=== PATIENT | male | born 1940 | race Caucasian/White ===

== ENCOUNTER → 2019-05-17 | Outpatient (CLI) | payer MEDICARE, BC ==
--- NOTE | 2019-05-17 08:08 | US ---
EXAMINATION TYPE: US abdomen comp/pelvis limited DATE OF EXAM: 05/17/2019 COMPARISON: US 2013 CLINICAL HISTORY: M79.2 NEURALGIA AND NEURITIS, R10.84 ABD PAIN. Intermittent abdomen pain x couple m onths EXAM MEASUREMENTS: Liver Length: 15.1 cm Gallbladder Wall: 0.2 cm CBD: 0.3 cm Spleen: 10.8 cm Right Kidney: 10.4 x 5.6 x 5.5 cm Left Kidney: 10.4 x 4.9 x 5.8 cm Post Void Residual: 47.0 mL Difficult and limited study due to patient body habitus and overlying bowel gas Pancreas: obscured Liver: mildly heterogeneous, scanned intercostally Gallbladder: 1.2cm echogenic shadowing stone seen on previous ultrasound CBD: visualized portions wnl Spleen: wnl Right Kidney: visualized portions wnl Left Kidney: wnl Upper IVC: wnl Abd Aorta: visualized portions wnl Bladder: mobile debris, wall measures in upper limits of normal Bilateral Jets Seen yes Normal Post Void Residual (normal less than 50ml) yes IMPRESSION: 1. Probable fatty liver. 2. Cholelithiasis. 3. Debris within the urinary bladder lumen.
--- NOTE | 2019-05-17 08:45 | XR ---
EXAMINATION TYPE: XR lumbosacral spine min 4V DATE OF EXAM: 05/17/2019 CLINICAL HISTORY: pain COMPARISON: NONE TECHNIQUE: Frontal, lateral, and oblique images of the lumbar spine are obtained. FINDINGS: There are 5 lumbar type vertebral bodies identified. The lumbar spine shows satisfactory alignment without evidence of acute fracture or dislocation. Vertebral body heights are within normal limits. Moderate to severe multilevel degenerative disc space narrowing greatest at L3-4 through L5- S1. Severe facet joint arthropathy with bilateral foraminal encroachment. The overlying soft tissue appears unremarkable. IMPRESSION: No acute fracture or dislocation is seen in the lumbar spine.ICD 10 NO FRACTURE, INITIAL EVALUATION
--- NOTE | 2019-05-17 08:46 | XR ---
EXAMINATION TYPE: XR thoracic spine 2V DATE OF EXAM: 05/17/2019 CLINICAL HISTORY: pain TECHNIQUE: Frontal, lateral, and swimmer's view of thoracic spine are obtained. COMPARISON: None. FINDINGS: Thoracic spine show satisfactory alignment without evidence of acute fracture or dislocatio n. Vertebral body heights are preserved. Moderate multilevel degenerative disc space narrowing and s pondylosis. Visualized ribs are unremarkable. IMPRESSION: No acute fracture or dislocation is seen in the thoracic spine. ICD 10 NO FRACTURE, INIT IAL EVALUATION
== END | disposition home or self-care (01) ==
LOC: RADUSWWP 06:58
PROVIDERS: ATTEND Family Medicine
DX: K80.20 Calculus of gallbladder without cholecystitis without obstruction (principal); M79.2 Neuralgia and neuritis, unspecified; R93.41 Abnormal radiologic findings on diagnostic imaging of renal pelvis, ureter, or bladder
CPT/HCPCS: 72070; 72110; 76700; 76857

== ENCOUNTER 2020-08-02 20:36 | Inpatient (IN) | payer MEDICARE, BC ==
[~2020-08-02 20:36] MED LIST: DEXTROSE 5% IN WATER 100 ML with AMIODARONE 150 MG IV ONE; IV FLUID CONTINUATION 1,000 ML IV ONE; NOREPINEPHRINE 4 MG in SODIUM CHLORIDE 0.9% 250 ML IV ONE; SODIUM CHLORIDE 0.9% 1,000 ML IV ONE
[2020-08-02] MEDS ORDERED: HEPARIN SODIUM,PORCINE 5,000 UNIT/ML 1 ML VIAL IV STA (20:44)
[2020-08-02] MEDS ORDERED: ATORVASTATIN 80 MG TAB PO STA (20:45)
--- NOTE | 2020-08-02 20:46 | ED ---
Chest Pain HPI - General Stated Complaint: Chest Pain Time Seen by Provider: 08/02/20 20:36 - History of Present Illness Initial Comments: 80-year-old male past history of coronary artery disease, hypertension who presents emergency room with reported chest pain. States that he was attempting to get a tractor out of a barn when he began having shortness of breath and chest pain. Pain is located near left-sided with radiation into his jaw. States has been constant since onset. Patient does have history of previous coronary disease with 2 stents in his heart. Last cath was in 2002. Patient sees [address] Turner. He denies any nausea, vomiting or diaphoresis. No fevers or chills. Denies cough. EMS was called and 12-lead EKG was performed which demonstrated inferior wall STEMI. Patient had taken 324 mg ASA at home. 100 mics of fentanyl was given en route. No other alleviating, precipitating or modifying factors - Related Data Home Medications Medication Instructions Recorded Confirmed Aspirin 325 mg PO DAILY PRN 08/02/20 08/02/20 Aspirin 364 mg PO ONCE PRN 08/02/20 08/02/20 Naproxen Sodium [Aleve] 220 mg PO DAILY PRN 08/02/20 08/02/20 Allergies Allergy/AdvReac Type Severity Reaction Status Date / Time No Known Allergies Allergy Verified 08/02/20 20:56 Review of Systems ROS Statement: Those systems with pertinent positive or pertinent negative responses have been documented in the HPI. ROS Other: All systems not noted in ROS Statement are negative. EKG Findings - EKG Comments: EKG Findings:: EKG demonstrates sinus rhythm with ventricular rate of 90. IL interval 210. QRS 84. QTC 442. ST segment elevation 2, 3, aVF, V4 through V6. Reciprocal changes in aVL, V2V3. Past Medical History Past Medical History: Coronary Artery Disease (CAD), Hypertension History of Any Multi-Drug Resistant Organisms: None Reported Past Surgical History: Heart Catheterization With Stent Past Psychological History: No Psychological Hx Reported Past Alcohol Use History: Rare Past Drug Use History: None Reported General Exam General appearance: alert, anxious, other (in pain) Head exam: Present: atraumatic, normocephalic, normal inspection Eye exam: Present: normal appearance, PERRL, EOMI. Absent: scleral icterus, conjunctival injection, periorbital swelling ENT exam: Present: normal exam, mucous membranes moist Neck exam: Present: normal inspection. Absent: tenderness, meningismus, lymphadenopathy Respiratory exam: Present: normal lung sounds bilaterally. Absent: respiratory distress, wheezes, rales, rhonchi, stridor Cardiovascular Exam: Present: regular rate, normal rhythm, normal heart sounds. Absent: systolic murmur, diastolic murmur, rubs, gallop, clicks GI/Abdominal exam: Present: soft, normal bowel sounds. Absent: distended, tenderness, guarding, rebound, rigid Extremities exam: Present: normal inspection, full ROM, normal capillary refill. Absent: tenderness, pedal edema, joint swelling, calf tenderness Back exam: Present: normal inspection Neurological exam: Present: alert, oriented X3, CN II-XII intact Psychiatric exam: Present: normal affect, normal mood Skin exam: Present: warm, dry, intact, normal color. Absent: rash Course Vital Signs 08/02/20 20:46 Temperature 97.5 F L Pulse Rate 88 Respiratory 16 Rate Blood Pressure 136/101 O2 Sat by Pulse 100 Oximetry Chest Pain MDM - MDM Upon arrival patient was promptly placed in a trauma 2. A thorough history and physical exam was performed. Dr. Turner had been notified prior to hospital arrival with prehospital EKG that the patient appeared to be a STEMI. Upon hospital arrival a 12-lead EKG was performed which continued to demonstrate ST elevation inferior leads. IV had been established. Patient was given 4000 units of heparin and 80 mg of atorvastatin. Portable chest x-ray is performed. I did speak with Dr. Turner at 2038 and requests that the cathodic protection technician to be called in. Patient remained in stable condition awaiting transfer to the [facility] [employer] at this time Disposition Clinical Impression: Chest pain, ST elevation myocardial infarction (STEMI) Disposition: ADMITTED IP TO THIS HOSP Condition: Serious Is patient prescribed a controlled substance at d/c from ED?: No Decision to Admit Reason: Admit from EC Decision Date: 08/02/20 Decision Time: 20:54
[2020-08-02 20:51] LABS: Basophils # (A) 0.1 k/uL (0-0.2); Basophils % (A) 1 %; Eosinophils # (A) 0.3 k/uL (0-0.7); Eosinophils % (A) 4 %; HCT 50.3 % (39.0-53.0); HGB 16.7 gm/dL (13.0-17.5); Lymphocytes # (A) 1.6 k/uL (1.0-4.8); Lymphocytes % (A) 20 %; MCH 30.9 pg (25.0-35.0); MCHC 33.1 g/dL (31.0-37.0); MCV 93.2 fL (80.0-100.0); Mean Platelet Volume 8.9; Monocytes # (A) 0.4 k/uL (0-1.0); Monocytes % (A) 5 %; Neutrophils # (A) 5.4 k/uL (1.3-7.7); Neutrophils % (A) 68 %; Platelet Count 149 k/uL (150-450); RDW 13.7 % (11.5-15.5)
[2020-08-02] MEDS ORDERED: NALOXONE 0.4 MG/ML 1 ML VIAL IV PRN (20:54)
[2020-08-02 20:59] LABS: Glucose,Whole Blood 176 mg/dL (75-99)
--- NOTE | 2020-08-02 21:15 | XR ---
EXAMINATION TYPE: XR chest 1V portable DATE OF EXAM: 08/02/2020 COMPARISON: 06/20/2015 HISTORY: Chest pain TECHNIQUE: FINDINGS: There is no heart failure nor confluent pneumonic infiltrate. Costophrenic angles are clear . There are no hilar masses. Heart size is normal. IMPRESSION: No active cardiopulmonary disease. No change.
[2020-08-02] MEDS ORDERED: LIDOCAINE 1% INJ 10MG/ML (20 ML MDV) ONE ×2 (21:20→22:29)
[2020-08-02] MEDS ORDERED: TICAGRELOR 90 MG TAB PO ONE (21:25)
[2020-08-02] MEDS ORDERED: HEPARIN SODIUM 1,000 UN/ML (10ML VL) IV ONE (21:25)
[2020-08-02] MEDS ORDERED: LIDOCAINE 1% INJ 10MG/ML (20 ML MDV) SQ ONE (21:25)
[2020-08-02] MEDS ORDERED: TICAGRELOR 90 MG TAB ONE (21:28)
[2020-08-02 21:29] LABS: INR 1.3 (<1.2); Partial Thromboplastin Time 88.4 sec (22.0-30.0); Prothrombin Time 13.2 sec (9.0-12.0)
[2020-08-02 21:51] LABS: Albumin 4.8 g/dL (3.5-5.0); Calcium 9.5 mg/dL (8.4-10.2); Magnesium 2.1 mg/dL (1.6-2.3); Total Bilirubin 0.8 mg/dL (0.2-1.3); Total Protein 8.1 g/dL (6.3-8.2)
[2020-08-02] MEDS ORDERED: DEXTROSE 5% IN WATER 100 ML with AMIODARONE 150 MG IV ONE (21:58)
[2020-08-02] MEDS ORDERED: AMIODARONE 360 MG in DEXTROSE 5% IN WATER 200 ML IV ONE ×2 (21:58)
[2020-08-02 22:05] LABS: Potassium 4.5 mmol/L (3.5-5.1)
[2020-08-02] MEDS ORDERED: ATROPINE SULFATE 0.1 MG/ML 10ML SYRINGE IV ONE (22:11)
[2020-08-02] MEDS ORDERED: fentaNYL (PF) 50 MCG/ML 2 ML AMP ONE (22:23)
[2020-08-02] MEDS ORDERED: fentaNYL (PF) 50 MCG/ML 2 ML AMP IVP ONE (22:25)
[2020-08-02] MEDS ORDERED: IOPAMIDOL-370 100ML BTL INJ ONE (22:38)
[2020-08-02] MEDS ORDERED: IOPAMIDOL-370 125ML BTL INJ ONE (22:44)
[2020-08-02] MEDS ORDERED: NITROGLYCERIN SL TABS 0.4 MG TAB SUBLINGUAL PRN (23:01)
[2020-08-02] MEDS ORDERED: ZOLPIDEM 5 MG TAB PO PRN (23:01)
[2020-08-02] MEDS ORDERED: RX INFO: IV CONTRAST WAS GIVEN 1 EACH MISC MISCELLANE PRN (23:01)
[2020-08-02] MEDS ORDERED: ATROPINE SULFATE 0.1 MG/ML 10ML SYRINGE IV PRN (23:01)
[2020-08-02] MEDS ORDERED: MAG HYDROX/AL HYDROX/SIMETH 30 ML CUP PO PRN (23:01)
[2020-08-02 23:06] LABS: Glucose,Whole Blood 202 mg/dL (75-99)
[2020-08-02] MEDS ORDERED: SODIUM CHLORIDE 0.9% 1,000 ML IV SCH (23:15)
[2020-08-02] MEDS: SPIRONOLACTONE 25 MG TAB PO SCH (23:49)
[2020-08-03 03:24] LABS: Basophils % (A) 0 %; Eosinophils # (A) 0.1 k/uL (0-0.7); Eosinophils % (A) 1 %; HCT 45.5 % (39.0-53.0); Lymphocytes # (A) 0.4 k/uL (1.0-4.8); Lymphocytes % (A) 5 %; MCH 31.4 pg (25.0-35.0); MCHC 33.1 g/dL (31.0-37.0); MCV 94.9 fL (80.0-100.0); Mean Platelet Volume 7.7; Monocytes # (A) 0.3 k/uL (0-1.0); Monocytes % (A) 3 %; Neutrophils # (A) 8.2 k/uL (1.3-7.7); Neutrophils % (A) 90 %; Platelet Count 103 k/uL (150-450); RBC 4.79 m/uL (4.30-5.90); RDW 13.4 % (11.5-15.5); WBC 9.1 k/uL (3.8-10.6)
[2020-08-03] MEDS ORDERED: AMIODARONE 450 MG in DEXTROSE 5% IN WATER 250 ML IV SCH ×2 (03:58)
[2020-08-03 04:00] LABS: Cholesterol 168 mg/dL (<200); HDL Cholesterol 55 mg/dL (40-60); LDL Cholesterol,Calculated 98 mg/dL (0-99); Triglycerides 77 mg/dL (<150)
[2020-08-03 04:21] LABS: African American GFR (CKD) >90 (>60 ml/min/1.73 sqM); Anion Gap 5 mmol/L; Blood Urea Nitrogen 30 mg/dL (9-20); Calcium 8.5 mg/dL (8.4-10.2); Carbon Dioxide 22 mmol/L (22-30); Chloride 106 mmol/L (98-107); Glucose 227 mg/dL (74-99); Non-African American GFR(CKD) 79 (>60 ml/min/1.73 sqM); Potassium 4.8 mmol/L (3.5-5.1); Sodium 133 mmol/L (137-145)
[2020-08-03] MEDS: FAMOTIDINE 20 MG TAB PO SCH ×2 (05:48→09:11)
--- NOTE | 2020-08-03 05:53 | CONS ---
CONSULTATION ATTENDING PHYSICIAN: Dr. Ellis. HISTORY OF PRESENT ILLNESS: Mr. Barrios is an 80-year-old male with known history of coronary disease, history of chronic tobacco use, who has stopped all his medication and presented to the emergency room with an acute inferior myocardial infarction. According to him, this started when he was working on his tractor and persisted. In view of that he came into the emergency room. He continues to have discomfort in the emergency room. He has underwent stenting in 2002. Details of that procedure are not available to me at this time, but about a year after he stopped all his medication. He was recently noted to have elevated blood sugar, but according to him he has changed his is eating habits and he has lost weight and he has noted not taking any pills. He has no chronic dyspnea on exertion or chest discomfort. He denies any PND, orthopnea, or peripheral edema. No dizziness, palpitation or syncope. SOCIAL HISTORY: He drinks caffeine. Rare alcohol intake. REVIEW OF SYSTEMS: RESPIRATORY SYSTEM: He denies any recent cough or fever. No wheezing. No history of obstructive lung disease. GI SYSTEM: No recent GI bleeding. No peptic ulcer disease. SYSTEM: No dysuria or hematuria. NERVOUS SYSTEM: No stroke or seizure. PHYSICAL EXAMINATION: He is an 80-year-old male, alert, oriented, in mild discomfort. Heart rate running in the 90s, blood pressure in the 100S systolic. HEAD: Normocephalic, eyes sclerae anicteric. NECK: Good carotid upstroke, no bruit, no jugular venous distention. LUNGS: Clear to auscultation. HEART: Regular rate and rhythm S1, S2. No S3 with a systolic murmur at the base. No diastolic murmur. No rub. ABDOMEN: Soft and nontender. Positive bowel sounds. No organomegaly. EXTREMITIES: No edema. Intact distal pulses. LAB DATA: EKG was sinus mechanism with severe ST-segment elevation in leads 2, 3, AVF as well as V4 through V6 with ST depression in lead V1 and V2 as well as ST depression in AVR. IMPRESSION: 1. Acute myocardial infarction appears to be large inferolateral and posterior myocardial infarction in a patient with known history of coronary artery disease. 2. Prior history of hyperlipidemia. Patient on no medication. 3. Prior history of diabetes. 4. History of chronic tobacco use. RECOMMENDATION: I have recommended proceeding with coronary angiography to assess his status and guide his treatment. The rationale behind the procedure, its risks and the complications were discussed with the patient who is in full understanding and agreement. Thank you for this consult. We will follow with you. PAMELA / IJN: [id number] /
[2020-08-03] MEDS: FUROSEMIDE 20 MG TAB PO SCH ×2 (09:14→21:03)
[2020-08-03] MEDS: ASPIRIN 81 MG PO SCH (09:14)
[2020-08-03] MEDS: TICAGRELOR 90 MG TAB PO SCH ×2 (09:14→21:03)
[2020-08-03] MEDS: METOPROLOL TARTRATE 25 MG TAB PO SCH ×2 (09:15→21:03)
[2020-08-03] MEDS: SPIRONOLACTONE 25 MG TAB PO SCH (09:15)
[2020-08-03] MEDS: lisinopriL 10 MG TAB PO SCH (09:15)
--- NOTE | 2020-08-03 09:27 | CC ---
CARDIAC CATHETERIZATION REPORT PROCEDURE PERFORMED: Cardiac catheterization. HISTORY OF PRESENT ILLNESS: Mr. Barrios is an 80-year-old male with known history of coronary artery disease status post stenting of the LAD in 2002, who has stopped all his medication, presented with a large inferior wall myocardial infarction. Recommendation made regarding cardiac catheterization. The procedure, its risks, and complications were discussed with the patient who is in full understanding and agreement. PROCEDURE: On arrival to the cardiac catheterization, patient had a ventricle fibrillation requiring brief CPR and cardioversion with confucianist of sinus mechanism. Subsequently, achieving moderate conscious sedated state, using Xylocaine anesthesia and Seldinger technique, a 6-Guamanian sheath was introduced in the right femoral artery. Attempts to cannulate the right coronary artery using a 6-Guamanian FR4 guiding catheter was unsuccessful without good support. That guiding catheter was removed and a 6-Guamanian Amplatz left 0.75 was introduced. After cannulating the right coronary ostium, 0.014 balanced medium weight J-wire with the help of a super cross straight were used to cross the total occlusion and positioned distally. Subsequently a 2.5 x 12 mm Trek balloon was advanced and multiple inflations were done at maximum 10 atmospheres. Following that the balloon was removed and an export catheter was introduced without ability to our remove any significant thrombus. Subsequently, a 4.0 x 38 mm Xience Yoselyn stent was deployed and post dilated at 16 atmospheres. After removing the balloon another 4.0 x 15 mm Xience Yoselyn stent was deployed proximal to the first one and post dilated at 16 atmospheres. Following that, a 4.0 x 20 mm NC Emerge balloon was advanced and 2 inflations in the stented segment maximum 14 atmospheres was done. Following that, a 2.75 x 15 mm Xience Yoselyn stent was advanced and deployed at the bifurcation of the PLV. After the last inflation, after appropriate wait, the balloon and the guidewire were withdrawn back in the guiding catheter. Images were obtained and repeated. Those images reveal stable successful stenting. At that point a 6- Guamanian left Sami catheter was introduced and images of the left coronary system were performed. Following that, the 6-Guamanian tight pigtail catheter was introduced into the left ventricle and pressures were calculated. After obtaining the left ventricular end- diastolic pressure, the 6-Guamanian Amplatz left guiding catheter was reintroduced into the system and images of the right coronary artery performed. At the end procedure guiding the catheter was removed. The sheath was removed. Hemostasis was obtained with deployment of an Angio-Seal. There was no immediate complication. Patient was returned to his room in stable condition. Of note, the patient had another ventricular fibrillation during the procedure requiring cardioversion. He had an episode of hypotension requiring brief infusion of norepinephrine and he received 0.5 mg of atropine. At the end of the procedure, his blood pressure and heart rate were stable. His pain was better, but continued to have some ST elevation. He has received a total of 6000 units intravenous heparin and his ACT was followed, as well as oral loading dose of Brilinta. FINDINGS: LEFT MAIN: This is a large-sized vessel, bifurcating into left circumflex, left anterior descending artery. Left main coronary artery has a 10% to 20% plaque distally. LEFT ANTERIOR DESCENDING ARTERY: This vessel is large in caliber, reaching toward the apex and gives rise to 2 diagonal branchs. The first one is diffusely diseased with area of stenosis up to 60 to 70%. It is small to moderate in caliber. The proximal LAD has a 40% to 50% plaque at the takeoff of the second diagonal branch. There is a tubular lesion up to 90%. Beyond that, there is a stented segment that appears to be patent. LEFT CIRCUMFLEX: This is a nondominant vessel, small in caliber, giving rise to 2 obtuse marginal branchs that have diffuse intimal disease. RIGHT CORONARY ARTERY: This vessel is totally occluded proximally with no antegrade flow. LEFT VENTRICULAR END-DIASTOLIC PRESSURE: There was no gradient across the aortic valve. The ventricle end-diastolic pressure was 30-35 mmHg. ANGIOPLASTY: He underwent successful stenting of the right coronary artery with reduction of stenosis from 100% to 0% with good flow in the PLV and PDA at the end the procedure. RESULTS: 1. Acutely occluded right coronary artery. 2. Critical stenosis in the mid left anterior descending with moderate disease in the proximal left anterior descending. 3. Diffuse intimal disease in the left circumflex. 4. Elevated left ventricular end-diastolic pressure. RESULTS OF THE ANGIOPLASTY: Successful stenting of the mid right coronary artery and the right PLV with reduction of stenosis from 100% to 0%. RECOMMENDATION: Patient will be continued on aspirin, Brilinta, beta faizan, VERONICA inhibitor, statin. The importance of dual antiplatelet treatment and medical compliance were discussed with the patient who is in full understanding and agreement. The patient will be re- evaluated at a later time regarding revascularization of his LAD. DURATION OF THE SEDATION: 106 minutes. PAMELA / STEPHANIA: [id number] / MTDD
--- NOTE | 2020-08-03 10:04 | PN ---
PROGRESS NOTE Mr. Barrios is an 80-year-old male who presented with an acute large inferoposterior myocardial infarction, underwent stenting of a totally occluded LAD. His course was complicated by ventricular fibrillation requiring cardioversion and CPR. He was found to have significant obstructive disease in the LAD. He is doing well this morning. He has some soreness in the chest, but no further anginal symptoms. He had no further ventricular ectopic activity. He is in sinus mechanism. He has no nausea or vomiting. He continues to be on IV amiodarone. In addition to that he is on aspirin once a day, Brilinta 90 mg twice a day, Lipitor 80 mg daily, furosemide 20 mg twice a day, Zestril 2.5 mg daily, metoprolol tartrate 25 mg twice a day and spironolactone 25 mg daily. PHYSICAL EXAMINATION: Blood pressure running in the high 80s, low 100s with a heart rate in the 60s. LUNGS: Clear. HEART is regular rate and rhythm. S1, S2. No S3. No rub. ABDOMEN: Soft, obese, nontender. EXTREMITIES: No edema. Right groin hematoma. EKG revealed inferior wall myocardial infarction. His ST-segment elevation has improved. LAB DATA: Lab data revealed troponin of 87, BUN and creatinine 30 and 0.9, hemoglobin of 15. IMPRESSION: 1. Status post acute inferoposterior myocardial infarction with stenting of the right coronary artery. 2. Prior history of coronary artery disease with significant obstructive disease in the mid LAD. 3. Ventricular fibrillation, resolved, occurring at the time of the acute event. 4. History of smoking. RECOMMENDATION: I will stop his IV amiodarone, increase his level of activity. We will obtain echocardiogram with Doppler tomorrow and depending on his progress, further recommendations will be made regarding the timing to undergo revascularization of the LAD. MMODL / IJN: [id number] /
[2020-08-03] MEDS ORDERED: ACETAMINOPHEN TAB 325 MG TAB PO PRN (11:59)
--- NOTE | 2020-08-03 12:02 | P.HPIM ---
History of Present Illness H&P Date: 08/03/20 This is an 80-year-old male patient of Dr. Ellis who presented to the ER with complaints of chest pain. Patient reports associated shortness of breath and described pain is constant. Patient reports that he has previous coronary artery disease with previous history of 2 stents in the heart in 2002. Upon arrival patient was found to have an inferior wall STEMI and was taken to the hernia catheterization lab. Patient received 3 stents. Patient does have a past medical history of CAD hypertension and GERD. According to cardiac catheterization procedure no. Patient did require CPR after going into V. fib and cardioversion. Patient was briefly on amiodarone but since has been DC'd. Patient is in sinus rhythm resting comfortably in the intensive care unit. Patient denies any chest pain. Patient does report some tenderness around rib cage secondary to CPR. Patient denies shortness of breath. Patient is complaining of constipation we'll add Colace. Will add Tylenol for muscle dis comfort at this time patient denies any chest pain or shortness breath. Patient denies nausea vomiting or diarrhea. Patient denies any urinary burning or frequency Review of Systems Please refer to HPI otherwise unremarkable Past Medical History Past Medical History: Coronary Artery Disease (CAD), Hypertension History of Any Multi-Drug Resistant Organisms: None Reported Past Surgical History: Heart Catheterization With Stent Date of Last Stent Placement:: 2002 Past Psychological History: No Psychological Hx Reported Smoking Status: Never smoker Past Alcohol Use History: Rare Past Drug Use History: None Reported Medications and Allergies Home Medications Medication Instructions Recorded Confirmed Type Aspirin 325 mg PO DAILY PRN 08/02/20 08/02/20 History Aspirin 364 mg PO ONCE PRN 08/02/20 08/02/20 History Naproxen Sodium [Aleve] 220 mg PO DAILY PRN 08/02/20 08/02/20 History Allergies Allergy/AdvReac Type Severity Reaction Status Date / Time No Known Allergies Allergy Verified 08/02/20 20:56 Physical Exam Vitals: Vital Signs Temp Pulse Resp BP Pulse Ox 08/03/20 11:00 65 9 L 85/65 95 08/03/20 10:25 97.7 F 08/03/20 10:00 61 10 L 90/64 96 08/03/20 09:00 60 18 89/64 95 08/03/20 08:00 97.8 F 67 19 120/107 96 08/03/20 07:00 68 6 L 88/54 94 L 08/03/20 06:00 67 12 89/53 96 08/03/20 05:00 66 14 99/73 94 L 08/03/20 04:30 68 18 104/67 95 08/03/20 04:00 96.8 F L 68 14 83/56 94 L 08/03/20 03:30 65 15 85/59 94 L 08/03/20 03:00 66 12 89/63 96 08/03/20 02:30 69 11 L 85/58 95 08/03/20 02:00 67 12 89/60 96 08/03/20 01:30 71 10 L 79/59 96 08/03/20 01:00 80 9 L 88/60 96 08/03/20 00:34 80 9 L 88/60 95 08/03/20 00:30 79 12 97/59 08/03/20 00:00 80 14 78/52 97 08/02/20 23:30 96.4 F L 82 6 L 92/62 96 08/02/20 23:26 96 08/02/20 23:03 86 15 08/02/20 20:46 97.5 F L 88 16 136/101 100 Intake and Output 08/02/20 08/03/20 08/03/20 22:59 06:59 14:59 Intake Total 1283.0 391.6 Balance 1283.0 391.6 Intake: IV 783.0 91.6 Amiodarone 360 mg In 133.2 Dextrose 5% in Water 200 ml @ 1 MG/MIN 33.333 mls/ hr IV .Q6H ONE Rx#: [id number] Amiodarone 450 mg In 49.8 16.6 Dextrose 5% in Water 250 ml @ 0.5 MG/MIN 16.667 mls/hr IV .Q15H MARGUERITE Rx#: [id number] Sodium Chloride 0.9% 1, 600 75 000 ml @ 75 mls/hr IV . [id number] MARGUERITE Rx#:[id number] Oral 500 300 Other: Voiding Method Urinal # Voids 1 Weight 91.626 kg 96.4 kg Head normocephalic Neck supple Lungs clear to auscultation bilaterally no wheezing or crackles Heart regular rate and rhythm S1-S2, no rub or gallop Abdomen is soft nontender nondistended positive bowel sounds no hepatosplenomegaly Extremities no edema. Groin site clean dry and intact and soft Neuro alert and orientated to 3 Results CBC & Chem 7: 08/03/20 03:01 08/03/20 03:01 Labs: Abnormal Lab Results - Last 24 Hours (Table) 08/02/20 08/02/20 08/02/20 Range/Units 20:40 20:58 21:05 Plt Count 149 L (150-450) k/uL Neutrophils # (1.3-7.7) k/uL Lymphocytes # (1.0-4.8) k/uL PT (9.0-12.0) sec INR (<1.2) APTT (22.0-30.0) sec Sodium (137-145) mmol/L Carbon Dioxide 21 L (22-30) mmol/L BUN 29 H (9-20) mg/dL Glucose 174 H (74-99) mg/dL POC Glucose (mg/dL) 176 H (75-99) mg/dL Troponin I (0.000-0.034) ng/mL 08/02/20 08/02/20 08/02/20 Range/Units 21:05 21:05 23:04 Plt Count (150-450) k/uL Neutrophils # (1.3-7.7) k/uL Lymphocytes # (1.0-4.8) k/uL PT 13.2 H (9.0-12.0) sec INR 1.3 H (<1.2) APTT 88.4 H (22.0-30.0) sec Sodium (137-145) mmol/L Carbon Dioxide (22-30) mmol/L BUN (9-20) mg/dL Glucose (74-99) mg/dL POC Glucose (mg/dL) 202 H (75-99) mg/dL Troponin I 0.050 H* (0.000-0.034) ng/mL 08/02/20 08/03/20 08/03/20 Range/Units 23:28 03:01 03:01 Plt Count 103 L (150-450) k/uL Neutrophils # 8.2 H (1.3-7.7) k/uL Lymphocytes # 0.4 L (1.0-4.8) k/uL PT (9.0-12.0) sec INR (<1.2) APTT (22.0-30.0) sec Sodium 133 L (137-145) mmol/L Carbon Dioxide (22-30) mmol/L BUN 30 H (9-20) mg/dL Glucose 227 H (74-99) mg/dL POC Glucose (mg/dL) (75-99) mg/dL Troponin I 26.300 H* (0.000-0.034) ng/mL 08/03/20 Range/Units 03:01 Plt Count (150-450) k/uL Neutrophils # (1.3-7.7) k/uL Lymphocytes # (1.0-4.8) k/uL PT (9.0-12.0) sec INR (<1.2) APTT (22.0-30.0) sec Sodium (137-145) mmol/L Carbon Dioxide (22-30) mmol/L BUN (9-20) mg/dL Glucose (74-99) mg/dL POC Glucose (mg/dL) (75-99) mg/dL Troponin I 87.700 H* (0.000-0.034) ng/mL Thrombosis Risk Factor Assmnt - Choose All That Apply Any of the Below Risk Factors Present?: Yes Each Factor Represents 1 point: Acute HI Other Risk Factors: Yes Each Risk Factor Represents 3 Points: Age 75 years or older Other congenital or acquired thrombophilia - If yes, enter type in comment: No Thrombosis Risk Factor Assessment Total Risk Factor Score: 4 Thrombosis Risk Factor Assessment Level: Moderate Risk Assessment and Plan Assessment: 1. Acute ST elevated HI. Status post 3 stents on 08/02/2020. Patient also required CPR during cardiac catheterization. Patient currently maintained on Brilinta 2. History of coronary artery disease with previous stents in 2002 3. History of essential hypertension 4. Constipation. Colace added 5. Chest wall discomfort secondary to CPR. Tylenol added Time with Patient: Greater than 30 (Greater than 60% of the total time spent in counseling and coordination of care. I performed an examination of the patient and discussed their management with the Nurse Practitioner. I have reviewed the Nurse Practitioner's notes and agree with the documented findings and plan of care)
[2020-08-03] MEDS: DOCUSATE 100 MG CAP PO SCH ×2 (12:27→21:03)
[2020-08-03] MEDS ORDERED: NAPROXEN 250 MG TAB PO PRN (12:42)
--- NOTE | 2020-08-03 12:50 | P.HPADDEND ---
H&P Addendum H&P Addendum Date: 08/03/20 Patient seen and examined in the ICU, he presented with chest pain and evidence of inferoposterior myocardial infarction he underwent cardiac catheterization with angioplasty and stent placement to totally occluded LAD. His course was complicated with ventricular fibrillation requiring cardioversion and CPR . Patient is admitted to intensive care unit postprocedure currently he is alert and oriented 3 in no apparent distress he denies any new episodes of chest pain. His physical exam reveals a temperature of 97.7 pulse 61 respiration 18 blood pressure 90/64 pulse ox 96% on 6 L nasal cannula HEENT head normocephalic and atraumatic Neck is supple no JVD no goiter no lymphadenopathy Chest exam reveals a few scattered rhonchi bilaterally no wheezing Cardiac exam reveals regular heart sounds S1 and S2 no gallops no murmurs nor rubs Abdomen is soft nontender no organomegaly with normal bowel sounds Extremity exam reveals no edema no cyanosis or clubbing Assessment and plan: 1. Acute ST elevation anterior myocardial infarction status post angioplasty and stent placement 2. Episode of ventricular fibrillation status post CPR and cardioversion Will follow closely Full H&P dictated by my nurse practitioner Sandra Calloway
[2020-08-03] MEDS: EZETIMIBE 10 MG TAB PO SCH (13:39)
[2020-08-03] MEDS ORDERED: SODIUM CHLORIDE 0.9% 500 ML 250 ML IV ONE (17:18)
[2020-08-03] MEDS ORDERED: ATORVASTATIN 80 MG TAB PO SCH (21:00)
[2020-08-04 04:40] LABS: Basophils % (A) 0 %; Eosinophils # (A) 0.1 k/uL (0-0.7); Eosinophils % (A) 2 %; HCT 42.9 % (39.0-53.0); HGB 14.2 gm/dL (13.0-17.5); Lymphocytes # (A) 0.8 k/uL (1.0-4.8); Lymphocytes % (A) 10 %; MCH 31.2 pg (25.0-35.0); MCV 94.5 fL (80.0-100.0); Mean Platelet Volume 8.5; Monocytes # (A) 0.4 k/uL (0-1.0); Monocytes % (A) 6 %; Neutrophils % (A) 81 %; RBC 4.53 m/uL (4.30-5.90); RDW 13.9 % (11.5-15.5); WBC 7.4 k/uL (3.8-10.6)
[2020-08-04 04:41] LABS: Platelet Count 90 k/uL (150-450)
[2020-08-04 04:44] LABS: Albumin 3.4 g/dL (3.5-5.0); Calcium 8.6 mg/dL (8.4-10.2); Potassium 4.6 mmol/L (3.5-5.1); Total Bilirubin 0.9 mg/dL (0.2-1.3); Total Protein 6.1 g/dL (6.3-8.2)
[2020-08-04] MEDS ORDERED: SODIUM CHLORIDE 0.9% 1,000 ML IV ONE (05:18)
[2020-08-04] MEDS: METOPROLOL TARTRATE 25 MG TAB PO SCH ×2 (08:49→20:16)
[2020-08-04] MEDS: ASPIRIN 81 MG PO SCH (08:49)
[2020-08-04] MEDS: FUROSEMIDE 20 MG TAB PO SCH ×2 (08:49→20:16)
[2020-08-04] MEDS: FAMOTIDINE 20 MG TAB PO SCH (08:49)
[2020-08-04] MEDS: TICAGRELOR 90 MG TAB PO SCH ×2 (08:49→20:16)
[2020-08-04] MEDS: DOCUSATE 100 MG CAP PO SCH ×2 (08:49→20:17)
[2020-08-04] MEDS: lisinopriL 10 MG TAB PO SCH (08:49)
[2020-08-04] MEDS: EZETIMIBE 10 MG TAB PO SCH (08:58)
[2020-08-04] MEDS ORDERED: ATORVASTATIN 20 MG TAB PO SCH (09:00)
[2020-08-04 10:02] VITALS: BMI 36.5
[2020-08-04] MEDS: SPIRONOLACTONE 25 MG TAB PO SCH (11:12)
--- NOTE | 2020-08-04 13:00 | ECHOF ---
Referral Reason:mi MEASUREMENTS -------- HEIGHT: 167.6 cm WEIGHT: 102.5 kg BP: 78/56 RVIDd: 3.8 cm (< 3.3) IVSd: 1.4 cm (0.6 - 1.1) LVIDd: 4.0 cm (3.9 - 5.3) LVPWd: 1.1 cm (0.6 - 1.1) IVSs: 1.5 cm LVIDs: 3.5 cm LVPWs: 1.7 cm LA Diam: 3.8 cm (2.7 - 3.8) Ao Diam: 2.6 cm (2.0 - 3.7) AV Cusp: 1.5 cm (1.5 - 2.6) MV EXCURSION: 13.261 mm (> 18.000) MV EF SLOPE: 95 mm/s (70 - 150) EPSS: 0.3 cm MV E Mendoza: 0.50 m/s MV DecT: 165 ms MV A Mendoza: 0.55 m/s MV E/A Ratio: 0.91 RAP: 5.00 mmHg RVSP: 14.05 mmHg FINDINGS -------- Sinus rhythm. This was a technically difficult study with suboptimal views. The left ventricular size is normal. There is moderate concentric left ventricular hypertrophy. O verall left ventricular systolic function is moderate-severely impaired with, an EF between 30 - 35 % . The right ventricle is mild to moderately enlarged. The right ventricular systolic function is mode rately impaired. The left atrial size is normal. The right atrium is mildly enlarged. 5.0mg of Lumason was utilized for enhancement of images Interatrial and interventricular septum intact. The aortic valve was not well visualized. There is no evidence of aortic regurgitation. There is no evidence of aortic stenosis. The mitral valve was not well visualized. Mild mitral regurgitation is present. The tricuspid valve was not well visualized. Mild tricuspid regurgitation present. There is no ev idence of pulmonary hypertension. The right ventricular systolic pressure, as measured by Doppler, is 14.05mmHg. The pulmonic valve was not well visualized. The aortic root size is normal. The inferior vena cava is mildly dilated. There is no pericardial effusion. CONCLUSIONS -------- 1. The left ventricular size is normal. 2. There is moderate concentric left ventricular hypertrophy. 3. Overall left ventricular systolic function is moderate-severely impaired with, an EF between 30 - 35 %. 4. The right ventricle is mild to moderately enlarged. 5. The right ventricular systolic function is moderately impaired. 6. The left atrial size is normal. 7. The right atrium is mildly enlarged. 8. Mild mitral regurgitation is present. 9. Mild tricuspid regurgitation present. 10. The inferior vena cava is mildly dilated. MEMORANDUM STATEMENT CLERK: Allison Long RDCS
--- NOTE | 2020-08-04 17:31 | P.PN ---
Subjective HISTORY OF PRESENTING ILLNESS This is a pleasant 80-year-old male past medical history significant for CAD with prior history of heart catheterization in 2002 who presented with chest pain and shortness breath on 08/02/20 night. Patient was found to have an inferior STEMI and underwent heart catheterization with PCI of the RCA and was also noted to have residual LAD disease. Echocardiogram was performed which showed ejection fraction 30-35%, mild mitral regurgitation. Patient did have V. fib arrest during heart catheterization. Patient has been borderline hypotensive. He denies any chest pain or pressure or shortness breath. Admits to some chest discomfort around where he had chest compressions. REVIEW OF SYSTEMS At the time of my exam: CONSTITUTIONAL: Denies fever or chills. CARDIOVASCULAR: Denies chest pain, shortness of breath, orthopnea, PND or palpitations. RESPIRATORY: Denies cough. GASTROINTESTINAL: Denies abdominal pain, diarrhea, constipation, nausea or vomiting. MUSCULOSKELETAL: Denies myalgias. NEUROLOGIC: Denies numbness, tingling or weakness. ENDOCRINE: Denies fatigue, weight change, polydipsia or polyurina. GENITOURINARY: Denies burning, hematuria or urgency with micturation. HEMATOLOGIC: Denies history of anemia or bleeding. PHYSICAL EXAMINATION Blood pressure 91/59 heart rate 68 afebrile and maintaining oxygen saturation on room air. CONSTITUTIONAL: No apparent distress. HEENT: Head is normocephalic. Pupils are equal, round. Sclerae anicteric. Mucous membranes of the mouth are moist. No JVD. No carotid bruit. CHEST EXAMINATION: Lungs are clear to auscultation. No chest wall tenderness is noted on palpation or with deep breathing. HEART EXAMINATION: Regular rate and rhythm. S1, S2 heard. No murmurs, gallops or rub. ABDOMEN: Soft, nontender. Positive bowel sounds. EXTREMITIES: 2+ peripheral pulses, no lower extremity edema and no calf tenderness. NEUROLOGIC EXAMINATION: Patient is awake, alert and oriented x3. ASSESSMENT 1. Inferior STEMI status post PCI to RCA 08/02/20 2. Ischemic cardiomyopathy ejection fraction 30-35%, currently appears euvolemic 3. Borderline hypotension, tolerating low-dose heart failure regimen with lisinopril 2.5 mg daily, Lopressor 25 mg twice a day 4. Status post cardioversion of V. fib arrest related to STEMI 5. Coronary artery disease with residual LAD disease 6. Hyperlipidemia PLAN Continue dual antiplatelets. Echo reveals ejection fraction 30-35%. Patient borderline hypotensive and continue to optimize heart failure regimen as able. Patient will likely need intervention of his LAD during this hospitalization, possibly Tuesday. Continue to monitor creatinine, urine output. Patient currently appears near euvolemic and we will continue with maintenance Lasix at this time. Objective - Vital Signs Vital signs: Vital Signs Temp 98.7 F 08/04/20 08:00 Pulse 68 08/04/20 15:00 Resp 20 08/04/20 15:00 BP 91/59 08/04/20 15:00 Pulse Ox 97 08/04/20 15:00 Intake & Output 08/03/20 08/04/20 08/04/20 18:59 06:59 18:59 Intake Total 1891.6 1349 480 Output Total 600 1000 0 Balance 1291.6 349 480 Weight 102.7 kg 102.7 kg Intake: IV 91.6 999 0 Amiodarone 450 mg In 16.6 Dextrose 5% in Water 250 ml @ 0.5 MG/MIN 16.667 mls/hr IV .Q15H MARGUERITE Rx#: [id number] Sodium Chloride 0.9% 1, 75 000 ml @ 75 mls/hr IV . [id number] MARGUERITE Rx#:[id number] Sodium Chloride 0.9% 1, 999 0 000 ml @ 999 mls/hr IV . Q1H1M ONE Rx#:[id number] Intake, IV Titration 250 Amount Sodium Chloride 0.9% 500 250 ml 250 ml @ 999 mls/hr IV .Q16M ONE Rx#:[id number] Oral 1550 350 480 Output: Urine 600 1000 0 Other: Voiding Method Toilet Toilet Toilet # Voids 1 1 1 # Bowel Movements 1 - Labs CBC & Chem 7: 08/04/20 03:10 08/04/20 03:10 Labs: Abnormal Lab Results - Last 24 Hours (Table) 08/04/20 08/04/20 Range/Units 03:10 03:10 Plt Count 90 L (150-450) k/uL Lymphocytes # 0.8 L (1.0-4.8) k/uL Sodium 133 L (137-145) mmol/L Carbon Dioxide 21 L (22-30) mmol/L BUN 42 H (9-20) mg/dL Glucose 142 H (74-99) mg/dL AST 269 H (17-59) U/L ALT 74 H (4-49) U/L Total Protein 6.1 L (6.3-8.2) g/dL Albumin 3.4 L (3.5-5.0) g/dL
--- NOTE | 2020-08-04 17:31 | P.PN ---
Subjective Progress Note Date: 08/04/20 This is an 80-year-old male patient of Dr. Ellis who presented to the ER with complaints of chest pain. Patient reports associated shortness of breath and described pain is constant. Patient reports that he has previous coronary artery disease with previous history of 2 stents in the heart in 2002. Upon arrival patient was found to have an inferior wall STEMI and was taken to the hernia catheterization lab. Patient received 3 stents. Patient does have a past medical history of CAD hypertension and GERD. According to cardiac catheterization procedure no. Patient did require CPR after going into V. fib and cardioversion. Patient was briefly on amiodarone but since has been DC'd. Patient is in sinus rhythm resting comfortably in the intensive care unit. Patient denies any chest pain. Patient does report some tenderness around rib cage secondary to CPR. Patient denies shortness of breath. Patient is complaining of constipation we'll add Colace. Will add Tylenol for muscle discomfort at this time patient denies any chest pain or shortness breath. Patient denies nausea vomiting or diarrhea. Patient denies any urinary burning or frequency On 08/04/2020, patient was seen and examined in the ICU he is alert and oriented 3 in no apparent distress patient denies any new episodes of chest pain there is no shortness of breath there is no fever or chills no headache or dizziness no chest pain no shortness of breath no cough during no abdominal pain no diarrhea no blood in the stools no burning with urination no frequency or urgency and no hematuria, patient is being evaluated by cardiology he had an echocardiogram today that revealed an ejection fraction of 30-35% Objective - Vital Signs Vital signs: Vital Signs Temp 98.7 F 08/04/20 08:00 Pulse 82 08/04/20 08:30 Resp 12 08/04/20 08:30 BP 105/67 08/04/20 08:30 Pulse Ox 95 08/04/20 08:30 Intake & Output 08/03/20 08/04/20 08/04/20 18:59 06:59 18:59 Intake Total 1891.6 1349 Output Total 600 1000 0 Balance 1291.6 349 0 Weight 102.7 kg Intake: IV 91.6 999 Amiodarone 450 mg In 16.6 Dextrose 5% in Water 250 ml @ 0.5 MG/MIN 16.667 mls/hr IV .Q15H MARGUERITE Rx#: [id number] Sodium Chloride 0.9% 1, 75 000 ml @ 75 mls/hr IV . [id number] MARGUERITE Rx#:[id number] Sodium Chloride 0.9% 1, 999 000 ml @ 999 mls/hr IV . Q1H1M ONE Rx#:[id number] Intake, IV Titration 250 Amount Sodium Chloride 0.9% 500 250 ml 250 ml @ 999 mls/hr IV .Q16M ONE Rx#:[id number] Oral 1550 350 Output: Urine 600 1000 0 Other: Voiding Method Toilet Toilet # Voids 1 1 # Bowel Movements 1 - Exam In general patient is alert and oriented 3 in no apparent distress HEENT head normocephalic and atraumatic Neck is supple no JVD no goiter no lymphadenopathy Chest exam reveals a few scattered rhonchi bilaterally no wheezing Cardiac exam reveals regular heart sounds S1 and S2 no gallops no murmurs nor rubs Abdomen is soft nontender no organomegaly with normal bowel sounds Extremity exam reveals no edema no cyanosis or clubbing Neuro exam reveals no gross focal deficit - Labs CBC & Chem 7: 08/04/20 03:10 08/04/20 03:10 Labs: Abnormal Lab Results - Last 24 Hours (Table) 08/02/20 08/04/20 08/04/20 Range/Units 23:28 03:10 03:10 Plt Count 90 L (150-450) k/uL Lymphocytes # 0.8 L (1.0-4.8) k/uL Sodium 133 L (137-145) mmol/L Carbon Dioxide 21 L (22-30) mmol/L BUN 42 H (9-20) mg/dL Glucose 142 H (74-99) mg/dL Hemoglobin A1c 6.3 H (4.0-6.0) % AST 269 H (17-59) U/L ALT 74 H (4-49) U/L Total Protein 6.1 L (6.3-8.2) g/dL Albumin 3.4 L (3.5-5.0) g/dL Assessment and Plan Plan: 1. Acute ST elevation anterior myocardial infarction status post angioplasty and stent placement 2. Episode of ventricular fibrillation status post CPR and cardioversion Will follow closely 3. Underlying history of hypertension 4. Underlying history of hyperlipidemia 5. Underlying history of peripheral vascular disease Medication and labs were reviewed Continue to follow up closely in ICU
[2020-08-05 04:40] LABS: Albumin 3.7 g/dL (3.5-5.0); Calcium 8.9 mg/dL (8.4-10.2); Potassium 4.5 mmol/L (3.5-5.1); Total Bilirubin 1.2 mg/dL (0.2-1.3); Total Protein 6.4 g/dL (6.3-8.2)
[2020-08-05 04:45] LABS: Basophils % (A) 0 %; Eosinophils # (A) 0.1 k/uL (0-0.7); Eosinophils % (A) 1 %; HCT 42.9 % (39.0-53.0); HGB 14.2 gm/dL (13.0-17.5); Lymphocytes % (A) 13 %; MCH 30.9 pg (25.0-35.0); MCV 93.6 fL (80.0-100.0); Mean Platelet Volume 8.7; Monocytes # (A) 0.5 k/uL (0-1.0); Monocytes % (A) 7 %; Neutrophils # (A) 5.6 k/uL (1.3-7.7); RBC 4.58 m/uL (4.30-5.90); RDW 13.7 % (11.5-15.5); WBC 7.3 k/uL (3.8-10.6)
[2020-08-05 05:20] LABS: Platelet Count 94 k/uL (150-450)
[2020-08-05] MEDS ORDERED: ASPIRIN 325 MG TAB PO STA (07:37)
[2020-08-05] MEDS ORDERED: ATORVASTATIN 80 MG TAB PO STA (07:37)
[2020-08-05] MEDS ORDERED: ALPRAZolam 0.25 MG TAB PO PRN (07:37)
[2020-08-05] MEDS ORDERED: ALPRAZolam 0.5 MG TAB PO PRN (07:37)
[2020-08-05] MEDS ORDERED: SODIUM CHLORIDE 0.9% 1,000 ML in EMPTY BAG 1 BAG IV ONE (07:37)
[2020-08-05] MEDS ORDERED: NITROGLYCERIN SL TABS 0.4 MG TAB SUBLINGUAL PRN (07:37)
[2020-08-05] MEDS: DOCUSATE 100 MG CAP PO SCH ×2 (08:14→20:41)
[2020-08-05] MEDS: METOPROLOL TARTRATE 25 MG TAB PO SCH ×2 (08:14→20:41)
[2020-08-05] MEDS: TICAGRELOR 90 MG TAB PO SCH ×2 (08:14→20:41)
[2020-08-05] MEDS: SPIRONOLACTONE 25 MG TAB PO SCH (08:14)
[2020-08-05] MEDS: EZETIMIBE 10 MG TAB PO SCH (08:14)
[2020-08-05] MEDS: FUROSEMIDE 20 MG TAB PO SCH (08:14)
[2020-08-05] MEDS: FAMOTIDINE 20 MG TAB PO SCH (08:14)
--- NOTE | 2020-08-05 09:48 | P.PN ---
Subjective This is a pleasant 80-year-old male past medical history significant for CAD with prior history of heart catheterization in 2002 who presented with chest pain and shortness breath on 08/02/20 night. Patient was found to have an inferior STEMI and underwent heart catheterization with PCI of the RCA and was also noted to have residual LAD disease. Successful stenting of the mid RCA and the right PLV with reduction of stenosis from 100% to 0%. Echocardiogram was performed which showed ejection fraction 30-35%, mild mitral regurgitation. Patient did have V. fib arrest during heart catheterization. His Blood pressure has improved . Patient was seen and examined this morning at 0800. He denies any chest pain or pressure or shortness breath. He has been ambulating in halls with no complaints. Laboratory results reviewed, Sodium 138, K 4.5, sCr 1.06, AST 196 (269 yesterday), ALT 102 (74 yesterday). Currently maintained on brilinta 90mg BID, aspirin 81mg daily, atorvastatin 20mg daily, Lisinopril, 2.5mg daily- has been intermittently held due to hypotension, metoprolol tartrate 25mg BID, spironolactone 25mg daily. REVIEW OF SYSTEMS At the time of my exam: CONSTITUTIONAL: Denies fever or chills. CARDIOVASCULAR: Denies chest pain, shortness of breath, orthopnea, PND or palpitations. RESPIRATORY: Denies cough. GASTROINTESTINAL: Denies abdominal pain, diarrhea, constipation, nausea or vomiting. MUSCULOSKELETAL: Denies myalgias. NEUROLOGIC: Denies numbness, tingling or weakness. ENDOCRINE: Denies fatigue, weight change, polydipsia or polyurina. GENITOURINARY: Denies burning, hematuria or urgency with micturation. HEMATOLOGIC: Denies history of anemia or bleeding. PHYSICAL EXAMINATION Blood pressure 116/69 heart rate 76 afebrile SpO2 92% on room air. Did have an episode of hypoxia overnight SpO2 88% CONSTITUTIONAL: No apparent distress. HEENT: Head is normocephalic. Pupils are equal, round. Sclerae anicteric. Mucous membranes of the mouth are moist. No JVD. No carotid bruit. CHEST EXAMINATION: Lungs are clear to auscultation. Mild chest wall tenderness with palpation due to compressions. HEART EXAMINATION: Regular rate and rhythm. S1, S2 heard. No murmurs, gallops or rub. ABDOMEN: Soft, nontender. Positive bowel sounds. EXTREMITIES: 2+ peripheral pulses, no lower extremity edema and no calf tenderness. SKIN: intact, no rashes, no wounds. NEUROLOGIC EXAMINATION: Patient is awake, alert and oriented x3. ASSESSMENT 1. Inferior STEMI status post PCI to RCA 08/02/20 2. Ischemic cardiomyopathy ejection fraction 30-35%, currently appears euvolemic 3. Borderline hypotension, tolerating low-dose heart failure regimen with lisinopril 2.5 mg daily, Lopressor 25 mg twice a day 4. Status post cardioversion of V. fib arrest related to STEMI 5. Coronary artery disease with residual LAD disease 6. Hyperlipidemia- most recent lipid panel on 08/03/20 TG 77, cholesterol 168, LDL 98, HDL 55 PLAN -Plan for patient to undergo PCI of his LAD with Dr. Turner tomorrow 08/06/2020 -Echo reveals ejection fraction 30-35%. Patient is a candidate for Life Vest to prevent sudden cardiac . Will discuss with case management to set up Life Vest for patient. -Continue dual antiplatelets: Patient on Brilinta and Aspirin. -Continue statin- patient on atorvastatin 20mg daily -Patient on ACEI- Lisinopril- has been intermittently held due to hypotension -Continue beta faizan: patient on metoprolol tartrate 25mg BID -Continue spironolactone -Patient borderline hypotensive and continue to optimize heart failure regimen as able. -Continue to monitor creatinine, urine output. Patient currently appears near euvolemic and we will continue with maintenance Lasix at this time. Objective - Vital Signs Vital signs: Vital Signs Temp 98.5 F 08/05/20 08:00 Pulse 76 08/05/20 08:00 Resp 18 08/05/20 08:00 BP 116/69 08/05/20 08:00 Pulse Ox 92 L 08/05/20 08:00 Intake & Output 08/04/20 08/05/20 08/05/20 18:59 06:59 18:59 Intake Total 1200 390 240 Output Total 0 250 0 Balance 1200 140 240 Weight 102.7 kg 103 kg Intake: IV 0 Sodium Chloride 0.9% 1, 0 000 ml @ 999 mls/hr IV . Q1H1M ONE Rx#:[id number] Oral 1200 390 240 Output: Urine 0 250 0 Other: Voiding Method Toilet Toilet # Voids 1 0 0 # Bowel Movements 1 - Labs CBC & Chem 7: 08/05/20 03:05 08/05/20 03:05 Labs: Abnormal Lab Results - Last 24 Hours (Table) 08/05/20 08/05/20 Range/Units 03:05 03:05 Plt Count 94 L (150-450) k/uL Chloride 108 H (98-107) mmol/L BUN 33 H (9-20) mg/dL Glucose 121 H (74-99) mg/dL AST 192 H (17-59) U/L ALT 102 H (4-49) U/L
[2020-08-05] MEDS: lisinopriL 10 MG TAB PO SCH (09:53)
--- NOTE | 2020-08-05 13:02 | P.PN ---
Subjective Progress Note Date: 08/05/20 This is an 80-year-old male patient of Dr. Ellis who presented to the ER with complaints of chest pain. Patient reports associated shortness of breath and described pain is constant. Patient reports that he has previous coronary artery disease with previous history of 2 stents in the heart in 2002. Upon arrival patient was found to have an inferior wall STEMI and was taken to the hernia catheterization lab. Patient received 3 stents. Patient does have a past medical history of CAD hypertension and GERD. According to cardiac catheterization procedure no. Patient did require CPR after going into V. fib and cardioversion. Patient was briefly on amiodarone but since has been DC'd. Patient is in sinus rhythm resting comfortably in the intensive care unit. Patient denies any chest pain. Patient does report some tenderness around rib cage secondary to CPR. Patient denies shortness of breath. Patient is complaining of constipation we'll add Colace. Will add Tylenol for muscle discomfort at this time patient denies any chest pain or shortness breath. Patient denies nausea vomiting or diarrhea. Patient denies any urinary burning or frequency On 08/04/2020, patient was seen and examined in the ICU he is alert and oriented 3 in no apparent distress patient denies any new episodes of chest pain there is no shortness of breath there is no fever or chills no headache or dizziness no chest pain no shortness of breath no cough during no abdominal pain no diarrhea no blood in the stools no burning with urination no frequency or urgency and no hematuria, patient is being evaluated by cardiology he had an echocardiogram today that revealed an ejection fraction of 30-35% On 08/05/2020 shouldn't was seen and examined in the ICU he is sitting up in a chair he is alert and oriented 3 in no distress there is no new episodes of chest pain still complaining of tenderness in the chest and pain when he takes a deep breath since he had CPR otherwise he denies any complaints at this time there is no fever or chills no headache or dizziness no chest pain no shortness of breath no cough no nausea or vomiting no abdominal pain no diarrhea no blood in the stools no burning with urination no frequency or urgency and no hematuria. Per cardiology plan is to proceed with cardiac catheterization and angioplasty to the LAD tomorrow Objective - Vital Signs Vital signs: Vital Signs Temp 98.5 F 08/05/20 08:00 Pulse 64 03/02/21 11:00 Resp 19 08/05/20 11:00 BP 126/78 08/05/20 11:00 Pulse Ox 95 08/05/20 11:00 Intake & Output 08/04/20 08/05/20 08/05/20 18:59 06:59 18:59 Intake Total 1200 390 240 Output Total 0 250 0 Balance 1200 140 240 Weight 102.7 kg 103 kg Intake: IV 0 Sodium Chloride 0.9% 1, 0 000 ml @ 999 mls/hr IV . Q1H1M ONE Rx#:[id number] Oral 1200 390 240 Output: Urine 0 250 0 Other: Voiding Method Toilet Toilet Toilet # Voids 1 0 1 # Bowel Movements 1 - Exam In general patient is alert and oriented 3 in no apparent distress HEENT head normocephalic and atraumatic Neck is supple no JVD no goiter no lymphadenopathy Chest exam reveals a few scattered rhonchi bilaterally no wheezing Cardiac exam reveals regular heart sounds S1 and S2 no gallops no murmurs nor rubs Abdomen is soft nontender no organomegaly with normal bowel sounds Extremity exam reveals no edema no cyanosis or clubbing Neuro exam reveals no gross focal deficit - Labs CBC & Chem 7: 08/05/20 03:05 08/05/20 03:05 Labs: Abnormal Lab Results - Last 24 Hours (Table) 08/05/20 08/05/20 Range/Units 03:05 03:05 Plt Count 94 L (150-450) k/uL Chloride 108 H (98-107) mmol/L BUN 33 H (9-20) mg/dL Glucose 121 H (74-99) mg/dL AST 192 H (17-59) U/L ALT 102 H (4-49) U/L Assessment and Plan Plan: 1. Acute ST elevation anterior myocardial infarction status post angioplasty and stent placement 2. Episode of ventricular fibrillation status post CPR and cardioversion Will follow closely 3. Underlying history of hypertension 4. Underlying history of hyperlipidemia 5. Underlying history of peripheral vascular disease Medication and labs were reviewed Continue to follow up closely in ICU
[2020-08-05] MEDS ORDERED: FUROSEMIDE 20 MG TAB PO SCH (16:00)
[2020-08-06 04:24] LABS: Basophils # (A) 0.1 k/uL (0-0.2); Basophils % (A) 1 %; Eosinophils # (A) 0.2 k/uL (0-0.7); Eosinophils % (A) 3 %; HCT 42.2 % (39.0-53.0); Lymphocytes % (A) 13 %; MCH 31.1 pg (25.0-35.0); MCV 94.2 fL (80.0-100.0); Mean Platelet Volume 8.2; Monocytes # (A) 0.5 k/uL (0-1.0); Monocytes % (A) 7 %; Neutrophils # (A) 5.5 k/uL (1.3-7.7); Neutrophils % (A) 75 %; RBC 4.48 m/uL (4.30-5.90); RDW 13.4 % (11.5-15.5); WBC 7.2 k/uL (3.8-10.6)
[2020-08-06 04:25] LABS: Platelet Count 98 k/uL (150-450)
[2020-08-06 04:40] LABS: Albumin 3.3 g/dL (3.5-5.0); Calcium 8.9 mg/dL (8.4-10.2); Potassium 4.3 mmol/L (3.5-5.1); Total Bilirubin 1.2 mg/dL (0.2-1.3)
[2020-08-06] MEDS: ATORVASTATIN 20 MG TAB PO SCH (06:36)
[2020-08-06] MEDS: TICAGRELOR 90 MG TAB PO SCH ×2 (06:36→21:30)
[2020-08-06] MEDS: ASPIRIN 81 MG PO SCH (06:36)
[2020-08-06] MEDS ORDERED: SODIUM CHLORIDE 0.9% 1,000 ML IV ONE (06:45)
[2020-08-06] MEDS ORDERED: LIDOCAINE 1% INJ 10MG/ML (20 ML MDV) ONE (06:54)
[2020-08-06] MEDS ORDERED: VERAPAMIL 2.5 MG/ML 2 ML AMP ONE (06:54)
[2020-08-06] MEDS ORDERED: HEPARIN SODIUM,PORCINE 10,000 UNIT in SODIUM CHLORIDE 0.9% 1,000 ML IRRIGATION PRN (07:00)
[2020-08-06] MEDS ORDERED: HEPARIN SODIUM,PORCINE 2,500 UNIT in SODIUM CHLORIDE 0.9% 250 ML IRRIGATION PRN (07:00)
[2020-08-06] MEDS ORDERED: fentaNYL (PF) 50 MCG/ML 2 ML AMP ONE (07:01)
[2020-08-06] MEDS ORDERED: fentaNYL (PF) 50 MCG/ML 2 ML AMP IV ONE (07:05)
[2020-08-06] MEDS ORDERED: LIDOCAINE 1% INJ 10MG/ML (20 ML MDV) SQ ONE (07:06)
[2020-08-06] MEDS ORDERED: MIDAZOLAM 2 MG/2 ML VIAL IV ONE (07:07)
[2020-08-06] MEDS ORDERED: HEPARIN SODIUM 1,000 UN/ML (10ML VL) ONE (07:11)
[2020-08-06] MEDS ORDERED: HEPARIN SODIUM 1,000 UN/ML (10ML VL) IV ONE (07:12)
[2020-08-06] MEDS ORDERED: NITROGLYCERIN 1000MCG/10ML SYRINGE INTRACORON ONE (07:21)
[2020-08-06] MEDS ORDERED: IOPAMIDOL-370 50ML BTL INJ ONE (07:39)
[2020-08-06] MEDS ORDERED: IOPAMIDOL-370 125ML BTL INJ ONE (07:39)
[2020-08-06] MEDS ORDERED: ATROPINE SULFATE 0.1 MG/ML 10ML SYRINGE IV PRN (07:55)
[2020-08-06] MEDS ORDERED: MAG HYDROX/AL HYDROX/SIMETH 30 ML CUP PO PRN (07:55)
[2020-08-06] MEDS ORDERED: RX INFO: IV CONTRAST WAS GIVEN 1 EACH MISC MISCELLANE PRN (07:55)
[2020-08-06] MEDS ORDERED: NITROGLYCERIN SL TABS 0.4 MG TAB SUBLINGUAL PRN (07:55)
[2020-08-06] MEDS ORDERED: ZOLPIDEM 5 MG TAB PO PRN (07:55)
[2020-08-06] MEDS ORDERED: SODIUM CHLORIDE 0.9% 1,000 ML IV SCH (08:00)
[2020-08-06 08:09] LABS: Glucose,Whole Blood 122 mg/dL (75-99)
[2020-08-06] MEDS: EZETIMIBE 10 MG TAB PO SCH (08:30)
[2020-08-06] MEDS: FAMOTIDINE 20 MG TAB PO SCH (08:30)
[2020-08-06] MEDS: DOCUSATE 100 MG CAP PO SCH ×2 (08:30→21:30)
--- NOTE | 2020-08-06 08:49 | PTCA ---
PERCUTANEOUSTRANS CORORONARY ANGIOGRAPHY Mr. Barrios is an 80-year-old male with a known history of coronary artery disease who presented on Tuesday with an acute inferior myocardial infarction underwent stenting of the RCA. At that time, he was found to have significant stenosis in the mid LAD. In view of that, recommendation was made regarding angioplasty and stenting. The procedure as well as the risks and the complications were discussed with the patient who is in full understanding and agreement. PROCEDURE: Patient was brought to school laboratory technician in a fasting semi-sedated state after receiving fentanyl and Benadryl and achieving moderate conscious sedated state. Using Xylocaine anesthesia and Seldinger technique, a 6-Omani sheath was introduced in the right radial artery. A 6-Omani EBU 3.75 guiding catheter introduced in the system. After cannulating the left main a 0.014 balanced medium weight J-wire was advanced across the lesion, positioned distal LAD. Subsequently, 2.25 x 12 mm NC Trek balloon was advanced and 2 inflations at 10 atmospheres was done. Following that, the balloon was removed and a 2.5 x 18 mm Xience Yoselyn stent was deployed post dilated at 16 atmospheres. Following that, the balloon was removed and a 3.0 x 8 mm NC Trek balloon was advanced and 2 inflations of proximal segment of the stent were done at maximum 14 atmospheres. After the last inflation, after appropriate wait, the balloon and the guidewire withdrawn back in the guiding catheter. Images were obtained, repeated. Those images reveal stable successful stenting. At that point, the guiding catheter, the balloon and the guidewire were removed and a 5-Omani tight pigtail catheter was introduced into the left ventricle and a 30-degree GORDILLO view of the left ventricle was obtained. Following that, catheter and sheath were removed. Hemostasis was obtained with deployment of a TR band. There was no immediate complication. The patient was returned to his room in stable condition. Of note, the patient received 7000 units of intravenous heparin and was continued on Brilinta. He had chest discomfort and EKG changes with the inflation that resulted in procedure. RESULTS: 1. Successful stenting of the mid LAD with reduction of stenosis from 90% to 0%. 2. Inferior basal and mid inferior wall has severe hypokinesis. Ejection fraction estimated at 40%. 3. Left ventricle end-diastolic pressure is 25-28 mmHg. RECOMMENDATION: Patient be continued on aspirin, Brilinta, beta blockers, VERONICA inhibitors and statin. The importance of dual antiplatelet treatment were discussed with the patient and he is full understanding and agreement. Duration of sedation is 35 minutes. JUJUL / IJN: [id number] /
--- NOTE | 2020-08-06 09:01 | LTR ---
August 06, 2020 Re: Suraj Denis Dear Dr. Ellis: I had the opportunity to perform coronary angioplasty and stenting on Mr. Barrios at [facility] on the 06 of August and a full copy of the procedure note will be forwarded to you. In brief, he underwent successful stenting of his mid LAD and was found to have moderately impaired left ventricular systolic function. I am hopeful that this procedure will stabilize his status and I will keep you updated on his progress. Thank you again for allowing me the opportunity to participate in his care. Please feel free to call for any questions. Sincerely yours, MD JUJU StewartL / DHIRAJN: [id number] /
[2020-08-06] MEDS: FUROSEMIDE 20 MG TAB PO SCH (11:15)
[2020-08-06] MEDS: SPIRONOLACTONE 25 MG TAB PO SCH (11:15)
[2020-08-06] MEDS: METOPROLOL TARTRATE 25 MG TAB PO SCH ×2 (11:15→21:30)
--- NOTE | 2020-08-06 13:17 | P.PN ---
Subjective Progress Note Date: 08/06/20 This is an 80-year-old male patient of Dr. Ellis who presented to the ER with complaints of chest pain. Patient reports associated shortness of breath and described pain is constant. Patient reports that he has previous coronary artery disease with previous history of 2 stents in the heart in 2002. Upon arrival patient was found to have an inferior wall STEMI and was taken to the hernia catheterization lab. Patient received 3 stents. Patient does have a past medical history of CAD hypertension and GERD. According to cardiac catheterization procedure no. Patient did require CPR after going into V. fib and cardioversion. Patient was briefly on amiodarone but since has been DC'd. Patient is in sinus rhythm resting comfortably in the intensive care unit. Patient denies any chest pain. Patient does report some tenderness around rib cage secondary to CPR. Patient denies shortness of breath. Patient is complaining of constipation we'll add Colace. Will add Tylenol for muscle discomfort at this time patient denies any chest pain or shortness breath. Patient denies nausea vomiting or diarrhea. Patient denies any urinary burning or frequency On 08/04/2020, patient was seen and examined in the ICU he is alert and oriented 3 in no apparent distress patient denies any new episodes of chest pain there is no shortness of breath there is no fever or chills no headache or dizziness no chest pain no shortness of breath no cough during no abdominal pain no diarrhea no blood in the stools no burning with urination no frequency or urgency and no hematuria, patient is being evaluated by cardiology he had an echocardiogram today that revealed an ejection fraction of 30-35% On 08/05/2020 shouldn't was seen and examined in the ICU he is sitting up in a chair he is alert and oriented 3 in no distress there is no new episodes of chest pain still complaining of tenderness in the chest and pain when he takes a deep breath since he had CPR otherwise he denies any complaints at this time there is no fever or chills no headache or dizziness no chest pain no shortness of breath no cough no nausea or vomiting no abdominal pain no diarrhea no blood in the stools no burning with urination no frequency or urgency and no hematuria. Per cardiology plan is to proceed with cardiac catheterization and angioplasty to the LAD tomorrow On 08/06/2020 patient is currently resting comfortably in the intensive care unit. Patient is alert and oriented 3. Per nursing staff patient is selective care overflow. Patient went to the cardiac Php Developer today I received planned stent the LAD. Right radial approach. Site looks clean dry and intact no signs of hematoma. At this time patient denies chest pain or shortness of breath. Patient denies nausea vomiting or diarrhea. Patient denies any urinary burning or frequency. Patient remains on Brilinta. Patient educated on the importance of medication compliance upon discharge. Objective - Vital Signs Vital signs: Vital Signs Temp 98 F 08/06/20 12:00 Pulse 69 08/06/20 12:00 Resp 16 08/06/20 12:00 BP 128/97 08/06/20 12:00 Pulse Ox 96 08/06/20 12:00 Intake & Output 08/05/20 08/06/20 08/06/20 18:59 06:59 18:59 Intake Total 1320 350 615 Output Total 0 300 0 Balance 1320 50 615 Weight 103.4 kg Intake: IV 100 Intake, IV Titration 500 200 375 Amount Sodium Chloride 0.9% 1, 375 000 ml @ 75 mls/hr IV . [id number] [facility] Rx#:[id number] Sodium Chloride 0.9% 1, 500 200 000 ml In Empty Bag 1 bag @ 1 ML/KG/HR 103 mls/hr IV .[id number] Rx#: [id number] Oral 820 50 240 Output: Urine 0 300 0 Other: Voiding Method Toilet Toilet Toilet # Voids 1 0 1 - Exam In general patient is alert and oriented 3 in no apparent distress HEENT head normocephalic and atraumatic Neck is supple no JVD no goiter no lymphadenopathy Chest exam reveals a few scattered rhonchi bilaterally no wheezing Cardiac exam reveals regular heart sounds S1 and S2 no gallops no murmurs nor rubs Abdomen is soft nontender no organomegaly with normal bowel sounds Extremity exam reveals no edema no cyanosis or clubbing Neuro exam reveals no gross focal deficit - Labs CBC & Chem 7: 08/06/20 04:07 08/06/20 04:07 Labs: Abnormal Lab Results - Last 24 Hours (Table) 08/06/20 08/06/20 08/06/20 Range/Units 04:07 04:07 08:07 Plt Count 98 L (150-450) k/uL BUN 29 H (9-20) mg/dL Glucose 127 H (74-99) mg/dL POC Glucose (mg/dL) 122 H (75-99) mg/dL AST 100 H (17-59) U/L ALT 86 H (4-49) U/L Total Protein 6.0 L (6.3-8.2) g/dL Albumin 3.3 L (3.5-5.0) g/dL Assessment and Plan Plan: 1. Acute ST elevation anterior myocardial infarction status post angioplasty and stent placement. On 08/06/2020 stent placed to LAD 2. Episode of ventricular fibrillation status post CPR and cardioversion Will follow closely 3. Underlying history of hypertension 4. Underlying history of hyperlipidemia 5. Underlying history of peripheral vascular disease Anticipate discharge next 24-48 hours
--- NOTE | 2020-08-06 14:21 | CDI ---
Documentation Clarification Form Date: 08/06/2020 02:00:57 PM From: Ailyn Gomez CCS, CCDS Admit Date: 08/02/2020 08:54:00 PM Patient Name: Suraj Barrios Visit Number: [id number] Discharge Date: ATTENTION: The Clinical Documentation Specialists (CDI) and [facility] Coding Staff appreciate your assistance in clarifying documentation. Please respond to the clarification below the line at the bottom and electronically sign. The CDI & [facility] Coding staff will review the response and follow-up if needed. Please note: Queries are made part of the Legal Health Record. If you have any questions, please contact the author of this message via ITS. Dr. Ron Cruz: Heart Failure is documented in the 08/04 & 08/05 Cardiology Progress Notes: "Borderline hypotension, tolerating low-dose heart failure regimen with Lisinopril 2.5 mg daily, Lopressor 25 mg twice a day. PLAN: Patient is borderline hypotensive and continue to optimize heart failure regimen as able." History/Risk Factors per the 08/02 ED Note Past Medical History: CAD, Hypertension, Heart Catheterization with Stent. Clinical Indicators: Patient presented to the ED via EMS on 08/02 with Chest Pain, left side radiating to jaw, SOB. EMS 12 lead EKG: Inferior wall STEMI. VS 08/02: T 97.5, P 88, R 16, BP 136/101, PO 100 RA - 15Lnrb, BMI: 36.8 08/02 LAB: Pl Ct 149, PT 13.2, INR 1.3, APTT 88.4, CO2 21, BUN 29, GFR 62, Glucose 174, Hgb A1c 6.3, Troponin 26.300, 87.700 BNP: Not done 08/04 Echocardiogram Results: Left ventricular size is normal. Moderate concentric LVH, Left ventricular systolic function is moderate-severely impaired w/EF 30- 35%, Right ventricle is mild-moderately impaired, Lt atrial size is normal, Right Atrium is mildly enlarged, Mild MR & TR, Inferior vena cava is mildly dilated. 08/02 CXR: No active cardiopulmonary disease. 08/02 EKG: R 90 Sinus rhythm with 1st degree AV block with PACs, ST elevation, consider anterolateral injury or acute infarct, Acute OK/STEMI Treatment 08/02: To Deckhand Maintenance: Left heart catheterization and AGUILAR Stent to RCA. IV Dextrose/Water w/Amiodarone, IV Levophed, IV NaCl x1, IV Heparin 4,000 unis x1, po Brillinta, IV Amiodrone in Dextrose 200 mls @ 33.333 mls/hr q6H, IV Atropine, IV Fentanyl, IV Fluid 1,000 mls @ 75 mls/hr q13H. 08/03: po Aspirin, po Lasix 20 mg BID, po Zestril, po Lopressor, po Brillinta, IV fluid 1,000 mls @ 999 mls/hr q1H. 08/05: po Lasix 20 mg (ordered, not given) 08/06: po Lasix 20 mg Daily In your professional opinion, can you please clarify the acuity and type of CHF if known? Heart Failure is ruled out Heart Failure is ruled in, please specify the type & acuity: o Systolic Heart Failure: Acute Chronic Acute on Chronic o Other type & acuity of Heart Failure, please specify: Other, please specify: Unable to Determine (Last Revision: September 2017) Chronic systolic heart failure MTDD
[2020-08-07 04:41] LABS: Basophils % (A) 1 %; Eosinophils # (A) 0.2 k/uL (0-0.7); Eosinophils % (A) 4 %; HCT 43.4 % (39.0-53.0); HGB 14.1 gm/dL (13.0-17.5); Lymphocytes % (A) 17 %; MCH 30.5 pg (25.0-35.0); MCHC 32.4 g/dL (31.0-37.0); MCV 94.2 fL (80.0-100.0); Mean Platelet Volume 8.6; Monocytes # (A) 0.4 k/uL (0-1.0); Monocytes % (A) 7 %; Neutrophils % (A) 71 %; Platelet Count 112 k/uL (150-450); RBC 4.61 m/uL (4.30-5.90); RDW 13.6 % (11.5-15.5); WBC 5.7 k/uL (3.8-10.6)
[2020-08-07 05:00] LABS: Calcium 8.9 mg/dL (8.4-10.2); Potassium 4.4 mmol/L (3.5-5.1)
--- NOTE | 2020-08-07 08:01 | P.PN ---
Subjective HISTORY OF PRESENTING ILLNESS This is a pleasant 80-year-old male past medical history significant for CAD with prior history of heart catheterization in 2002 who presented with chest pain and shortness breath on 08/02/20 night. Patient was found to have an inferior STEMI and underwent heart catheterization with PCI of the RCA and was also noted to have residual LAD disease. Echocardiogram was performed which showed ejection fraction 30-35%, mild mitral regurgitation. Patient did have V. fib arrest during heart catheterization. Patient has been borderline hypotensive. He denies any chest pain or pressure or shortness breath. Admits to some chest discomfort around where he had chest compressions. 08/07/2020 Patient seen and examined. Patient underwent PCI of his LAD yesterday through the right radial approach. No complications and he has been feeling well. Additionally a left ventriculogram was performed which showed improved ejection fraction of 40% up from 30-35% per echo. He states he has been walking around the halls and denies any issues. Has been tolerating his medications. REVIEW OF SYSTEMS At the time of my exam: CONSTITUTIONAL: Denies fever or chills. CARDIOVASCULAR: Denies chest pain, shortness of breath, orthopnea, PND or palpitations. RESPIRATORY: Denies cough. GASTROINTESTINAL: Denies abdominal pain, diarrhea, constipation, nausea or vomiting. MUSCULOSKELETAL: Denies myalgias. NEUROLOGIC: Denies numbness, tingling or weakness. ENDOCRINE: Denies fatigue, weight change, polydipsia or polyurina. GENITOURINARY: Denies burning, hematuria or urgency with micturation. HEMATOLOGIC: Denies history of anemia or bleeding. PHYSICAL EXAMINATION Blood pressure 96/57 heart rate 69 afebrile and maintaining oxygen saturation on room air. CONSTITUTIONAL: No apparent distress. HEENT: Head is normocephalic. Pupils are equal, round. Sclerae anicteric. Mucous membranes of the mouth are moist. No JVD. No carotid bruit. CHEST EXAMINATION: Lungs are clear to auscultation. No chest wall tenderness is noted on palpation or with deep breathing. HEART EXAMINATION: Regular rate and rhythm. S1, S2 heard. No murmurs, gallops or rub. ABDOMEN: Soft, nontender. Positive bowel sounds. EXTREMITIES: 2+ peripheral pulses, no lower extremity edema and no calf tenderness. NEUROLOGIC EXAMINATION: Patient is awake, alert and oriented x3. ASSESSMENT 1. Inferior STEMI status post PCI to RCA 08/02/20 2. Ischemic cardiomyopathy ejection fraction 40 %, currently appears euvolemic 3. Chronic systolic heart failure 4. Status post cardioversion of V. fib arrest related to STEMI 5. Coronary artery disease with staged PCI of LAD 08/06/2020 6. Hyperlipidemia PLAN Patient underwent successful staged PCI of the LAD yesterday. He has been doing well. Left ventriculogram showed somewhat improved ejection fraction 40%. No current need for LifeVest. Continue to optimize heart failure medication as an outpatient. Patient is stable for discharge home. Continue to antiplatelets with aspirin and Brilinta. Follow-up with Dr. Turner in one week. Objective - Vital Signs Vital signs: Vital Signs Temp 98.1 F 08/07/20 04:00 Pulse 69 08/07/20 04:00 Resp 18 08/07/20 04:00 BP 96/57 08/07/20 04:00 Pulse Ox 94 L 08/07/20 04:00 Intake & Output 08/06/20 08/07/20 08/07/20 18:59 06:59 18:59 Intake Total 735 Output Total 0 1425 Balance 735 -1425 Weight 105.3 kg Intake: Intake, IV Titration 375 Amount Sodium Chloride 0.9% 1, 375 000 ml @ 75 mls/hr IV . [id number] [facility] Rx#:[id number] Oral 360 Output: Urine 0 1425 Other: Voiding Method Toilet Urinal # Voids 1 # Bowel Movements 1 - Labs CBC & Chem 7: 08/07/20 04:05 08/07/20 04:05 Labs: Abnormal Lab Results - Last 24 Hours (Table) 08/06/20 08/07/20 08/07/20 Range/Units 08:07 04:05 04:05 Plt Count 112 L (150-450) k/uL Sodium 136 L (137-145) mmol/L BUN 25 H (9-20) mg/dL Glucose 112 H (74-99) mg/dL POC Glucose (mg/dL) 122 H (75-99) mg/dL
[2020-08-07] MEDS: METOPROLOL TARTRATE 25 MG TAB PO SCH (09:01)
[2020-08-07] MEDS: TICAGRELOR 90 MG TAB PO SCH (09:01)
[2020-08-07] MEDS: ATORVASTATIN 20 MG TAB PO SCH (09:01)
[2020-08-07] MEDS: SPIRONOLACTONE 25 MG TAB PO SCH (09:01)
[2020-08-07] MEDS: FUROSEMIDE 20 MG TAB PO SCH (09:01)
[2020-08-07] MEDS: FAMOTIDINE 20 MG TAB PO SCH (09:01)
[2020-08-07] MEDS: EZETIMIBE 10 MG TAB PO SCH (09:01)
[2020-08-07] MEDS: DOCUSATE 100 MG CAP PO SCH (09:01)
[2020-08-07] MEDS: ASPIRIN 81 MG PO SCH (09:01)
[2020-08-07 09:53] VITALS: RESP 16; TEMP 98.2
[2020-08-07 12:11] VITALS: BP 112/74; PULSE 62
--- NOTE | 2020-08-08 10:38 | P.DS ---
Providers Date of admission: 08/02/20 20:54 Expected date of discharge: 08/08/20 Attending physician: Eliud Foley Consults: 08/02/20 20:44 Consult Physician Stat Consulting Provider: Juan Antonio Encinas Consult Reason/Comments: STEMI ACTIVATION COMPLETE Do you want consulting provider notified?: Yes 08/02/20 23:02 Consult Physician Routine Consulting Provider: Cardiology Huang Consult Reason/Comments: Post Interventional patient Do you want consulting provider notified?: Already Contacted 08/06/20 07:55 Consult Physician Routine Consulting Provider: Cardiology Huang Consult Reason/Comments: Post Interventional patient Do you want consulting provider notified?: Already Contacted Primary care physician: Mayela Ellis Hospital Course: Discharge diagnosis 1. Acute ST elevation anterior myocardial infarction status post angioplasty and stent placement. On 08/06/2020 stent placed to LAD 2. Episode of ventricular fibrillation status post CPR and cardioversion Will follow closely 3. Underlying history of hypertension 4. Underlying history of hyperlipidemia 5. Underlying history of peripheral vascular disease Anticipate discharge next 24-48 hours Hospital course This is an 80-year-old male patient of Dr. Ellis who presented to the ER with complaints of chest pain. Patient reports associated shortness of breath and described pain is constant. Patient reports that he has previous coronary artery disease with previous history of 2 stents in the heart in 2002. Upon arrival patient was found to have an inferior wall STEMI and was taken to the hernia catheterization lab. Patient received 3 stents. Patient does have a past medical history of CAD hypertension and GERD. According to cardiac catheterization procedure no. Patient did require CPR after going into V. fib and cardioversion. Patient was briefly on amiodarone but since has been DC'd. Patient is in sinus rhythm resting comfortably in the intensive care unit. Patient denies any chest pain. Patient does report some tenderness around rib cage secondary to CPR. Patient denies shortness of breath. Patient is complaining of constipation we'll add Colace. Will add Tylenol for muscle discomfort at this time patient denies any chest pain or shortness breath. Patient denies nausea vomiting or diarrhea. Patient denies any urinary burning or frequency On 08/04/2020, patient was seen and examined in the ICU he is alert and oriented 3 in no apparent distress patient denies any new episodes of chest pain there is no shortness of breath there is no fever or chills no headache or dizziness no chest pain no shortness of breath no cough during no abdominal pain no diarrhea no blood in the stools no burning with urination no frequency or urgency and no hematuria, patient is being evaluated by cardiology he had an echocardiogram today that revealed an ejection fraction of 30-35% On 08/05/2020 shouldn't was seen and examined in the ICU he is sitting up in a chair he is alert and oriented 3 in no distress there is no new episodes of chest pain still complaining of tenderness in the chest and pain when he takes a deep breath since he had CPR otherwise he denies any complaints at this time there is no fever or chills no headache or dizziness no chest pain no shortness of breath no cough no nausea or vomiting no abdominal pain no diarrhea no blood in the stools no burning with urination no frequency or urgency and no hematuria. Per cardiology plan is to proceed with cardiac catheterization and angioplasty to the LAD tomorrow On 08/06/2020 patient is currently resting comfortably in the intensive care unit. Patient is alert and oriented 3. Per nursing staff patient is selective care overflow. Patient went to the cardiac Family Caseworker today I received planned stent the LAD. Right radial approach. Site looks clean dry and intact no signs of hematoma. At this time patient denies chest pain or shortness of breath. Patient denies nausea vomiting or diarrhea. Patient denies any urinary burning or frequency. Patient remains on Brilinta. Patient educated on the importance of medication compliance upon discharge. On 08/07/2020 patient is alert and oriented 3. Patient discharged on Brilinta. Patient advised to follow-up closely with PCP and cardiology services. At this time. Denies chest pain or shortness of breath. Patient denies nausea vomiting or diarrhea. Patient denies any urinary burning or frequency Patient Condition at Discharge: Stable Plan - Discharge Summary New Discharge Prescriptions: New Spironolactone [Aldactone] 25 mg PO DAILY tab Ticagrelor [Brilinta] 90 mg PO BID tab Docusate [Colace] 100 mg PO BID cap Furosemide [Lasix] 20 mg PO DAILY tab Atorvastatin [Lipitor] 20 mg PO DAILY tab Metoprolol Tartrate [Lopressor] 25 mg PO BID tab Nitroglycerin Sl Tabs [Nitrostat] 0.4 mg SUBLINGUAL Q5M PRN tab PRN Reason: Chest Pain lisinopriL [Zestril] 2.5 mg PO BID tab Ezetimibe [Zetia] 10 mg PO DAILY tab Continue Naproxen Sodium [Aleve] 220 mg PO DAILY PRN PRN Reason: Pain Aspirin 364 mg PO ONCE PRN PRN Reason: Chest Pain Discontinued Aspirin 325 mg PO DAILY PRN PRN Reason: Pain Discharge Medication List Aspirin 364 mg PO ONCE PRN 08/02/20 [History] Naproxen Sodium [Aleve] 220 mg PO DAILY PRN 08/02/20 [History] Atorvastatin [Lipitor] 20 mg PO DAILY tab 08/07/20 [Rx] Docusate [Colace] 100 mg PO BID cap 08/07/20 [Rx] Ezetimibe [Zetia] 10 mg PO DAILY tab 08/07/20 [Rx] Furosemide [Lasix] 20 mg PO DAILY tab 08/07/20 [Rx] Metoprolol Tartrate [Lopressor] 25 mg PO BID tab 08/07/20 [Rx] Nitroglycerin Sl Tabs [Nitrostat] 0.4 mg SUBLINGUAL Q5M PRN tab 08/07/20 [Rx] Spironolactone [Aldactone] 25 mg PO DAILY tab 08/07/20 [Rx] Ticagrelor [Brilinta] 90 mg PO BID tab 08/07/20 [Rx] lisinopriL [Zestril] 2.5 mg PO BID tab 08/07/20 [Rx] Follow up Appointment(s)/Referral(s): George Turner MD [STAFF PHYSICIAN] - 1 Week (Called [facility] to schedule follow up appointment in one week with Dr. Turner, guest relations receptionist stated she would call patient with date and time of appoitment.) Mayela Ellis MD [Primary Care Provider] - 1-2 Days (Dr. Ellis appointment August 13 at 2:30) Patient Instructions/Handouts: Heart Attack (DC), Coronary Artery Disease (DC) Discharge Disposition: HOME SELF-CARE
--- NOTE | 2020-08-11 07:12 | CDI ---
Documentation Clarification Form Date: 08/11/20 From: Mary Borja Phone: Admit Date: 08/02/2020 08:54:00 PM Patient Name: Suraj Barrios Visit Number: [id number] Discharge Date: 08/07/2020 12:13:00 PM ATTENTION: The Clinical Documentation Specialists (CDI) and [facility] Coding Staff appreciate your assistance in clarifying documentation. Please respond to the clarification below the line at the bottom and electronically sign. The CDI & [facility] Coding staff will review the response and follow-up if needed. Please note: Queries are made part of the Legal Health Record. If you have any questions, please contact the author of this message via ITS. Dr. Eliud Foley, He was recently noted to have elevated blood sugar, but according to him, he was changing his eating habits and he has lost weight and not taking any pills. POC Glucose: 176, 202, 176 Glucose: 174, 227, 142, 121, 127, 112 Treatment: blood glucose monitoring ACHS, healthy heart diet Per [facility] 2016 - query the provider for clarification whether the patient has hyperglycemia or hypoglycemia so that the appropriate code may be reported - uncontrolled diabetes indicates that the patient's blood sugar is not at an acceptable level, because it is either too high or too low. In order to capture the severity of Illness and necessary documentation specificity, please clarify if Type 2 uncontrolled diabetes is: Hyperglycemia Other, please specify Unable to Determine Diabetes type II with hyperglycemia MTDD
== END 2020-08-07 12:13 | disposition home or self-care (01) | DRG 246 ==
LOC: EC 20:36 → 2SICU 20:54
PROVIDERS: ADMIT Internal Medicine; ATTEND Internal Medicine
DX: I21.11 ST elevation (STEMI) myocardial infarction involving right coronary artery (principal); I49.01 Ventricular fibrillation; I46.2 Cardiac arrest due to underlying cardiac condition; I50.22 Chronic systolic (congestive) heart failure; I11.0 Hypertensive heart disease with heart failure; I95.9 Hypotension, unspecified; E11.51 Type 2 diabetes mellitus with diabetic peripheral angiopathy without gangrene; E11.65 Type 2 diabetes mellitus with hyperglycemia; I25.5 Ischemic cardiomyopathy; I25.10 Atherosclerotic heart disease of native coronary artery without angina pectoris; I34.0 Nonrheumatic mitral (valve) insufficiency; E78.5 Hyperlipidemia, unspecified; K21.9 Gastro-esophageal reflux disease without esophagitis; K59.00 Constipation, unspecified; Z95.5 Presence of coronary angioplasty implant and graft; Z87.891 Personal history of nicotine dependence
CPT/HCPCS: 36415; 71045; 80048; 80053; 80061; 83036; 83735; 84484; 85025; 85347; 85610; 85730; 92950; 93005; 93306; 93458; 96365; 96366; 96374; 99285

== ENCOUNTER 2024-03-19 07:39 | Emergency (ER) | payer MEDICARE, BC ==
[2024-03-19 07:50] VITALS: RESP 17
--- NOTE | 2024-03-19 07:57 | ED ---
General Adult HPI - General Stated complaint: chest pain Time Seen by Provider: 03/19/24 07:40 Source: patient, EMS, RN notes reviewed, old records reviewed Mode of arrival: EMS Limitations: no limitations - History of Present Illness Initial comments: 83-year-old male presents with left-sided lateral chest pain after getting into bed this morning. Patient denies associated symptoms of nausea vomiting, no diaphoresis. No radiation. Pain is localized to a place of tenderness on the chest wall. Patient took nitroglycerin at home without any change in pain. Transported by paramedics with stable vitals. Pain began 3 hours prior to arrival. - Related Data Home Medications Medication Instructions Recorded Confirmed Aspirin 81 mg PO DAILY 08/02/20 03/19/24 Docusate [Colace] 100 mg PO HS 03/19/24 03/19/24 Docusate [Colace] 200 mg PO DAILY 03/19/24 03/19/24 Ezetimibe [Zetia] 10 mg PO HS@2100 03/19/24 03/19/24 Loratadine [Claritin] 10 mg PO DAILY 03/19/24 03/19/24 Rosuvastatin Calcium [Crestor] 5 mg PO MOFR@2100 03/19/24 03/19/24 Previous Rx's Medication Instructions Recorded Furosemide [Lasix] 20 mg PO DAILY tab 08/07/20 Metoprolol Tartrate [Lopressor] 25 mg PO BID tab 08/07/20 Nitroglycerin Sl Tabs [Nitrostat] 0.4 mg SUBLINGUAL Q5M PRN tab 08/07/20 Spironolactone [Aldactone] 25 mg PO DAILY tab 08/07/20 lisinopriL [Zestril] 2.5 mg PO BID tab 08/07/20 Allergies Allergy/AdvReac Type Severity Reaction Status Date / Time No Known Allergies Allergy Verified 03/19/24 09:44 Review of Systems ROS Statement: Those systems with pertinent positive or pertinent negative responses have been documented in the HPI. ROS Other: All systems not noted in ROS Statement are negative. Past Medical History Past Medical History: Coronary Artery Disease (CAD), Hypertension History of Any Multi-Drug Resistant Organisms: None Reported Past Surgical History: Heart Catheterization With Stent Date of Last Stent Placement:: 2002 Past Psychological History: No Psychological Hx Reported Past Alcohol Use History: Rare Past Drug Use History: None Reported General Exam Limitations: no limitations General appearance: alert, in no apparent distress Head exam: Present: atraumatic, normocephalic Eye exam: Present: normal appearance, PERRL ENT exam: Present: normal exam Neck exam: Present: normal inspection. Absent: tenderness, meningismus Respiratory exam: Present: normal lung sounds bilaterally, chest wall tenderness (Chest wall tenderness at the location of pain complaint). Absent: respiratory distress, wheezes Cardiovascular Exam: Present: regular rate, normal rhythm GI/Abdominal exam: Present: soft. Absent: distended, tenderness, guarding Extremities exam: Present: normal inspection, normal capillary refill. Absent: pedal edema, calf tenderness Neurological exam: Present: alert, oriented X3 Psychiatric exam: Present: normal affect, normal mood Skin exam: Present: warm, dry, intact Course Vital Signs 03/19/24 07:40 Temperature 97.9 F Pulse Rate 63 Respiratory 17 Rate Blood Pressure 117/97 O2 Sat by Pulse 95 Oximetry Medical Decision Making - Medical Decision Making Was pt. sent in by a medical professional or institution (JUSTIN Martínez, GEAR MILLING MACHINE SET UP OPERATOR, urgent care, hospital, or custodial...) When possible be specific @ -No Did you speak to anyone other than the patient for history (EMS, parent, family, police, friend...)? What history was obtained from this source @ -No Did you review nursing and triage notes (agree or disagree)? Why? @ -I reviewed and agree with nursing and triage notes Were old charts reviewed (outside hosp., previous admission, EMS record, old EKG, old radiological studies, urgent care reports/EKG's, custodial records)? Report findings @ -No old charts were reviewed Differential Chest Pain: Stable Angina, Unstable Angina, STEMI, NSTEMI Aortic Dissection, Pneumothorax, Musculoskeletal, Esophageal Spasm GERD, Cholecystitis, Pancreatitis, Zoster, this is not meant to be an all-inclusive list. EKG interpreted by me (3pts min.). @ -Sinus rhythm rate of 64, MI interval 193, QRS duration 93, QTc [address] segment elevation. X-rays interpreted by me (1pt min.). @ -Chest x-ray negative for acute cardiopulmonary findings CT interpreted by me (1pt min.). @ -None done U/S interpreted by me (1pt. min.). @ -None done What testing was considered but not performed or refused? (CT, X-rays, U/S, labs)? Why? @ -None What meds were considered but not given or refused? Why? @ -None Did you discuss the management of the patient with other professionals (professionals i.e. , PA, GEAR MILLING MACHINE SET UP OPERATOR, lab, RT, psych nurse, social worker masters, weather algorithm scientist, teacher, ground defence officer, transplant case manager)? Give summary @ -No Was smoking cessation discussed for >3mins.? @ -No Was critical care preformed (if so, how long)? @ -No Were there social determinants of health that impacted care today? How? (Homelessness, low income, unemployed, alcoholism, drug addiction, transportation, low edu. Level, literacy, decrease access to med. care, residential, rehab)? @ -No Was there de-escalation of care discussed even if they declined (Discuss DNR or withdrawal of care, Hospice)? DNR status @ -No What co-morbidities impacted this encounter? (DM, HTN, Smoking, COPD, CAD, Cancer, CVA, ARF, Chemo, Hep., AIDS, mental health diagnosis, sleep apnea, morbid obesity)? @ -History of coronary artery disease Was patient admitted / discharged? Hospital course, mention meds given and route, prescriptions, significant lab abnormalities, going to OR and other pertinent info. @ -[83-year-old male with left lateral chest wall tenderness and pain. Patient denies similarities between today's pain and previous heart attack. Pain began after getting into bed. He has focal tenderness on the left lateral chest wall, no crepitus. Chest x-ray is clear no displaced fracture. She has normal CBC, normal CMP, negative initial troponin. Patient eager for discharge but agreeable with second troponin to ensure noncardiac cause of his pain. Second troponin is again negative. I do feel reassured by the history physical and w orkup in the emergency department. Patient stable for discharge with return parameters. Undiagnosed new problem with uncertain prognosis? @ -No Drug Therapy requiring intensive monitoring for toxicity (Heparin, Nitro, Insulin, Cardizem)? @ -No Were any procedures done? @ -No Diagnosis/symptom? @Chest wall pain Acute, or Chronic, or Acute on Chronic? @ -Acute Uncomplicated (without systemic symptoms) or Complicated (systemic symptoms)? @ -Default Side effects of treatment? @ -No Exacerbation, Progression, or Severe Exacerbation? @ -No Poses a threat to life or bodily function? How? (Chest pain, USA, [place], pneumonia, PE, COPD, DKA, ARF, appy, cholecystitis, CVA, Diverticulitis, Homicidal, Suicidal, threat to staff... and all critical care pts) @ -No - Lab Data Result diagrams: 03/19/24 07:54 03/19/24 07:54 Lab Results 03/19/24 03/19/24 03/19/24 Range/Units 07:54 07:54 07:54 WBC 5.5 (3.8-10.6) k/uL RBC 5.09 (4.30-5.90) m/uL Hgb 15.9 (13.0-17.5) gm/dL Hct 49.3 (39.0-53.0) % MCV 96.9 (80.0-100.0) fL MCH 31.3 (25.0-35.0) pg MCHC 32.3 (31.0-37.0) g/dL RDW 13.2 (11.5-15.5) % Plt Count 134 L (150-450) k/uL MPV 8.1 Neutrophils % 66 % Lymphocytes % 20 % Monocytes % 7 % Eosinophils % 4 % Basophils % 1 % Neutrophils # 3.6 (1.3-7.7) k/uL Lymphocytes # 1.1 (1.0-4.8) k/uL Monocytes # 0.4 (0-1.0) k/uL Eosinophils # 0.2 (0-0.7) k/uL Basophils # 0.0 (0-0.2) k/uL PT 11.5 (10.0-12.5) sec INR 1.1 (<1.2) APTT 23.2 (22.0-30.0) sec Sodium 136 L (137-145) mmol/L Potassium 4.6 (3.5-5.1) mmol/L Chloride 106 (98-107) mmol/L Carbon Dioxide 26 (22-30) mmol/L Anion Gap 4 mmol/L BUN 30 H (9-20) mg/dL Creatinine 1.40 H (0.66-1.25) mg/dL Est GFR (CKD-EPI)AfAm 53 (>60 ml/min/1.73 sqM) Est GFR (CKD-EPI)NonAf 46 (>60 ml/min/1.73 sqM) Glucose 155 H (74-99) mg/dL Calcium 8.8 (8.4-10.2) mg/dL Magnesium 2.2 (1.6-2.3) mg/dL Total Bilirubin 0.6 (0.2-1.3) mg/dL AST 28 (17-59) U/L ALT 28 (4-49) U/L Alkaline Phosphatase 69 (38-126) U/L Troponin I (0.000-0.034) ng/mL Total Protein 6.9 (6.3-8.2) g/dL Albumin 3.9 (3.5-5.0) g/dL 03/19/24 03/19/24 Range/Units 07:54 09:34 WBC (3.8-10.6) k/uL RBC (4.30-5.90) m/uL Hgb (13.0-17.5) gm/dL Hct (39.0-53.0) % MCV (80.0-100.0) fL MCH (25.0-35.0) pg MCHC (31.0-37.0) g/dL RDW (11.5-15.5) % Plt Count (150-450) k/uL MPV Neutrophils % % Lymphocytes % % Monocytes % % Eosinophils % % Basophils % % Neutrophils # (1.3-7.7) k/uL Lymphocytes # (1.0-4.8) k/uL Monocytes # (0-1.0) k/uL Eosinophils # (0-0.7) k/uL Basophils # (0-0.2) k/uL PT (10.0-12.5) sec INR (<1.2) APTT (22.0-30.0) sec Sodium (137-145) mmol/L Potassium (3.5-5.1) mmol/L Chloride (98-107) mmol/L Carbon Dioxide (22-30) mmol/L Anion Gap mmol/L BUN (9-20) mg/dL Creatinine (0.66-1.25) mg/dL Est GFR (CKD-EPI)AfAm (>60 ml/min/1.73 sqM) Est GFR (CKD-EPI)NonAf (>60 ml/min/1.73 sqM) Glucose (74-99) mg/dL Calcium (8.4-10.2) mg/dL Magnesium (1.6-2.3) mg/dL Total Bilirubin (0.2-1.3) mg/dL AST (17-59) U/L ALT (4-49) U/L Alkaline Phosphatase (38-126) U/L Troponin I <0.012 <0.012 (0.000-0.034) ng/mL Total Protein (6.3-8.2) g/dL Albumin (3.5-5.0) g/dL Disposition Clinical Impression: Chest wall pain Disposition: HOME SELF-CARE Condition: Fair Instructions (If sedation given, give patient instructions): Chest Pain (ED), Costochondritis (ED) Is patient prescribed a controlled substance at d/c from ED?: No Referrals: Mayela Ellis MD [Primary Care Provider] - 1-2 days Time of Disposition: 10:14
[2024-03-19 08:05] LABS: Basophils % (A) 1 %; Eosinophils # (A) 0.2 k/uL (0-0.7); Eosinophils % (A) 4 %; HCT 49.3 % (39.0-53.0); HGB 15.9 gm/dL (13.0-17.5); Lymphocytes # (A) 1.1 k/uL (1.0-4.8); Lymphocytes % (A) 20 %; MCH 31.3 pg (25.0-35.0); MCHC 32.3 g/dL (31.0-37.0); MCV 96.9 fL (80.0-100.0); Mean Platelet Volume 8.1; Monocytes # (A) 0.4 k/uL (0-1.0); Monocytes % (A) 7 %; Neutrophils # (A) 3.6 k/uL (1.3-7.7); Neutrophils % (A) 66 %; Platelet Count 134 k/uL (150-450); RBC 5.09 m/uL (4.30-5.90); RDW 13.2 % (11.5-15.5); WBC 5.5 k/uL (3.8-10.6)
[2024-03-19 08:15] LABS: ALT 28 U/L (4-49); AST 28 U/L (17-59); African American GFR (CKD) 53 (>60 ml/min/1.73 sqM); Albumin 3.9 g/dL (3.5-5.0); Alkaline Phosphatase 69 U/L (38-126); Anion Gap 4 mmol/L; Blood Urea Nitrogen 30 mg/dL (9-20); Calcium 8.8 mg/dL (8.4-10.2); Carbon Dioxide 26 mmol/L (22-30); Chloride 106 mmol/L (98-107); Glucose 155 mg/dL (74-99); Magnesium 2.2 mg/dL (1.6-2.3); Non-African American GFR(CKD) 46 (>60 ml/min/1.73 sqM); Potassium 4.6 mmol/L (3.5-5.1); Sodium 136 mmol/L (137-145); Total Bilirubin 0.6 mg/dL (0.2-1.3); Total Protein 6.9 g/dL (6.3-8.2)
[2024-03-19 08:18] LABS: INR 1.1 (<1.2); Partial Thromboplastin Time 23.2 sec (22.0-30.0); Prothrombin Time 11.5 sec (10.0-12.5)
--- NOTE | 2024-03-19 08:37 | XR ---
EXAMINATION TYPE: XR chest 2V DATE OF EXAM: 03/19/2024 8:26 AM CLINICAL INDICATION: Male, 83 years old with history of Chest Pain; COMPARISON: Chest radiographs from 08/02/2020 TECHNIQUE: XR chest 2V Frontal view of the chest. FINDINGS: Lungs/Pleura: There is no evidence of pleural effusion, focal consolidation, or pneumothorax. Pulmonary vascularity: Unremarkable. Heart/mediastinum: Cardiomediastinal silhouette is unremarkable. Musculoskeletal: No acute osseous pathology. IMPRESSION: No acute cardiopulmonary disease/process. [facility], , 03/19/2024 8:34 AM
[2024-03-19 10:18] VITALS: BP 98/72; PULSE 64; TEMP 98.1
== END 2024-03-19 10:32 | disposition home or self-care (01) ==
LOC: EC 07:39
DX: R07.89 Other chest pain (principal)
CPT/HCPCS: 36415; 71046; 80053; 83735; 84484; 85025; 85610; 85730; 93005; 99285

== ENCOUNTER 2024-11-06 18:06 | Emergency (ER) | payer MEDICARE, BC ==
--- NOTE | 2024-11-06 18:31 | ED ---
Chest Pain HPI - General Chief Complaint: Chest Pain Stated Complaint: Chest pain Time Seen by Provider: 11/06/24 18:23 Source: patient, EMS, RN notes reviewed, old records reviewed Mode of arrival: EMS Limitations: no limitations - History of Present Illness Initial Comments: This is a 84-year-old male to the ER for evaluation of chest pain today this is an male with significant history of CAD history of heart disease and coming in with chest pain today prior to arrival. No current shortness of breath travel or sick contacts no fever cough or congestion, concern for heart disease MD Complaint: chest pain -: hour(s) Onset: during rest, during exertion Pain Location: substernal, left chest Pain Radiation: none Severity: moderate Severity scale (1-10): 4 Quality: tightness, aching Consistency: constant Improves With: nothing Worsens With: nothing Anginal Symptoms: sense of impending doom Other Symptoms: palpitations Treatments Prior to Arrival: none - Related Data Home Medications Medication Instructions Recorded Confirmed Aspirin 81 mg PO DAILY 08/02/20 11/06/24 Docusate [Colace] 100 mg PO HS 03/19/24 11/06/24 Docusate [Colace] 200 mg PO DAILY 03/19/24 11/06/24 Ezetimibe [Zetia] 10 mg PO HS 03/19/24 11/06/24 Loratadine [Claritin] 10 mg PO DAILY 03/19/24 11/06/24 Rosuvastatin Calcium [Crestor] 5 mg PO MOFR@2100 03/19/24 11/06/24 Cholecalciferol [Vitamin D3 (125 250 mcg PO MOTUWETHFR 11/06/24 11/06/24 Mcg = 5000 Iu)] Previous Rx's Medication Instructions Recorded Furosemide [Lasix] 20 mg PO DAILY tab 08/07/20 Metoprolol Tartrate [Lopressor] 25 mg PO BID tab 08/07/20 Nitroglycerin Sl Tabs [Nitrostat] 0.4 mg SUBLINGUAL Q5M PRN tab 08/07/20 Spironolactone [Aldactone] 25 mg PO DAILY tab 08/07/20 lisinopriL [Zestril] 2.5 mg PO BID tab 08/07/20 Allergies Allergy/AdvReac Type Severity Reaction Status Date / Time No Known Allergies Allergy Verified 11/06/24 20:07 Review of Systems ROS Statement: Those systems with pertinent positive or pertinent negative responses have been documented in the HPI. ROS Other: All systems not noted in ROS Statement are negative. EKG Findings - EKG Comments: EKG Findings:: EKG sinus 65 CA 189 QRS 84 QTc 409 - EKG Results: EKG: interpreted by HALLIE Past Medical History Past Medical History: Coronary Artery Disease (CAD), Hypertension, Myocardial Infarction (NM) History of Any Multi-Drug Resistant Organisms: None Reported Past Surgical History: Heart Catheterization With Stent Additional Past Surgical History / Comment(s): 6 stents as of 11/06/24 Date of Last Stent Placement:: 2002 Past Psychological History: No Psychological Hx Reported Smoking Status: Current every day smoker Past Alcohol Use History: Rare Past Drug Use History: None Reported General Exam General appearance: alert, in no apparent distress Head exam: Present: atraumatic, normocephalic, normal inspection Eye exam: Present: normal appearance, PERRL, EOMI. Absent: scleral icterus, conjunctival injection, periorbital swelling ENT exam: Present: normal exam, mucous membranes moist Neck exam: Present: normal inspection. Absent: tenderness, meningismus, lymphadenopathy Respiratory exam: Present: normal lung sounds bilaterally. Absent: respiratory distress, wheezes, rales, rhonchi, stridor Cardiovascular Exam: Present: regular rate, normal rhythm, normal heart sounds. Absent: systolic murmur, diastolic murmur, rubs, gallop, clicks GI/Abdominal exam: Present: soft, normal bowel sounds. Absent: distended, tenderness, guarding, rebound, rigid Extremities exam: Present: normal inspection, full ROM, normal capillary refill. Absent: tenderness, pedal edema, joint swelling, calf tenderness Back exam: Present: normal inspection Neurological exam: Present: alert, oriented X3, CN II-XII intact Psychiatric exam: Present: normal affect, normal mood Skin exam: Present: warm, dry, intact, normal color. Absent: rash Course Vital Signs 11/06/24 11/06/24 11/06/24 18:12 18:42 21:22 Temperature 98.5 F 97.8 F Pulse Rate 63 65 Respiratory 16 16 18 Rate Blood Pressure 101/60 106/78 O2 Sat by Pulse 96 96 Oximetry 11/06/24 21:34 Temperature 97.9 F Pulse Rate 65 Respiratory 18 Rate Blood Pressure 93/67 O2 Sat by Pulse 95 Oximetry - Reevaluation(s) Reevaluation #1: 11/06/24 18:39 Medical records reviewed Reevaluation #2: Patient symptoms improved Reevaluation #3: Patient informed of results and questions answered Reevaluation #4: Was pt. sent in by a medical professional or institution (, JUSTIN, TOBACCO BALER, urgent care, hospital, or shelter...) When possible be specific @ -no Did you speak to anyone other than the patient for history (EMS, parent, family, police, friend...)? What history was obtained from this source @ -no Did you review nursing and triage notes (agree or disagree)? Why? @ -agree Are old charts reviewed (outside hosp., previous admission, EMS record, old EKG, old radiological studies, urgent care reports/EKG's, shelter records)? Report findings @ -yes Differential Diagnosis (chest pain, altered mental status, abdominal pain women, abdominal pain men, vaginal bleeding, weakness, fever, dyspnea, syncope, headache, dizziness, GI bleed, back pain, seizure, CVA, palpatations, mental health, musculoskeletal)? @ -prior EKG interpreted by me (3pts min.). @ -yes X-rays interpreted by me (1pt min.). @ -yes negative for acute disease CT interpreted by me (1pt min.). @ -no U/S interpreted by me (1pt. min.). @ -no What testing was considered but not performed or refused? (CT, X-rays, U/S, labs)? Why? @ -none What meds were considered but not given or refused? Why? @ -none Did you discuss the management of the patient with other professionals (professionals i.e. JUSTIN Martínez, TOBACCO BALER, lab, RT, psych nurse, social group worker, asphalt tamper, teacher, custom protection officer, correctional case records supervisor)? Give summary @ -no Was smoking cessation discussed for >3mins.? @ -no Was critical care preformed (if so, how long)? @ -no Were there social determinants of health that impacted care today? How? (Homelessness, low income, unemployed, alcoholism, drug addiction, transportation, low edu. Level, literacy, decrease access to med. care, [facility], rehab)? @ -none Was there de-escalation of care discussed even if they declined (Discuss DNR or withdrawal of care, Hospice)? DNR status @ -no What co-morbidities impacted this encounter? (DM, HTN, Smoking, COPD, CAD, Cancer, CVA, ARF, Chemo, Hep., AIDS, mental health diagnosis, sleep apnea, morbid obesity)? @ -none Was patient admitted / discharged? Hospital course, mention meds given and route, prescriptions, significant lab abnormalities, going to OR and other pertinent info. @ - 84 male to the ER for evaluation of chest pain today. Patient has persistent chest pain here in the ER and urged to stay in the hospital for further evaluation but patient does not want stay in the hospital and is can leave AGAINST MEDICAL ADVICE AMA Undiagnosed new problem with uncertain prognosis? @ -no Drug Therapy requiring intensive monitoring for toxicity (Heparin, Nitro, Insulin, Cardizem)? @ -no Were any procedures done? @ -no Diagnosis/symptom? @ -Chest pain Acute, or Chronic, or Acute on Chronic? @ -Acute Uncomplicated (without systemic symptoms) or Complicated (systemic symptoms)? @ -Complicated Side effects of treatment? @ -no Exacerbation, Progression, or Severe Exacerbation? @ -exacerbation Poses a threat to life or bodily function? How? (Chest pain, [place], [place], pneumonia, PE, COPD, DKA, ARF, appy, cholecystitis, CVA, Diverticulitis, Homicidal, Suicidal, threat to staff... and all critical care pts) @ -yes extremes of age Reevaluation #5: Differential Chest Pain: Stable Angina, Unstable Angina, STEMI, NSTEMI Aortic Dissection, Pneumothorax, Musculoskeletal, Esophageal Spasm GERD, Cholecystitis, Pancreatitis, Zoster, this is not meant to be an all-inclusive list. Chest Pain MDM - MDM 84 male to the ER for evaluation of chest pain today. Patient has persistent chest pain here in the ER and urged to stay in the hospital for further evaluation but patient does not want stay in the hospital and is can leave AGAINST MEDICAL ADVICE Disposition Clinical Impression: Chest pain Disposition: LEFT AGAINST MEDICAL ADVICE Condition: Fair Instructions (If sedation given, give patient instructions): Chest Pain (ED) Is patient prescribed a controlled substance at d/c from ED?: No Referrals: Mayela Ellis MD [Primary Care Provider] - 1-2 days
[2024-11-06 18:51] LABS: Basophils # (A) 0.08 10*3/uL (0.00-0.10); Basophils % (A) 1.5 %; Eosinophils # (A) 0.12 10*3/uL (0.04-0.35); Eosinophils % (A) 2.2 %; HCT 46.2 % (39.6-50.0); HGB 15.8 g/dL (13.0-17.0); Immature Platelet Fraction 1.8 % (1.1-6.1); Lymphocytes # (A) 1.07 10*3/uL (0.90-5.00); Lymphocytes % (A) 19.5 %; MCH 31.3 pg (27.0-32.0); MCHC 34.2 g/dL (32.0-37.0); MCV 91.7 fL (80.0-97.0); Mean Platelet Volume 10.2 fL (9.5-12.2); Monocytes # (A) 0.46 10*3/uL (0.20-1.00); Monocytes % (A) 8.4 %; Neutrophils # (A) 3.76 10*3/uL (1.80-7.70); Neutrophils % (A) 68.2 %; Platelet Count 137 10*3/uL (140-440); RBC 5.04 10*6/uL (4.40-5.60); RDW 13.2 % (11.5-14.5)
[2024-11-06 19:00] LABS: INR 1.1 (<1.2); Partial Thromboplastin Time 22.1 sec (22.0-30.0); Prothrombin Time 11.8 sec (10.0-12.5)
[2024-11-06 19:01] LABS: ALT 27 U/L (4-49); AST 28 U/L (17-59); African American GFR (CKD) 61 (>60 ml/min/1.73 sqM); Albumin 4.1 g/dL (3.5-5.0); Alkaline Phosphatase 82 U/L (38-126); Anion Gap 10 mmol/L; Blood Urea Nitrogen 31 mg/dL (9-20); Calcium 9.4 mg/dL (8.4-10.2); Carbon Dioxide 23 mmol/L (22-30); Chloride 104 mmol/L (98-107); Glucose 144 mg/dL (74-99); Lipase 155 U/L (23-300); Magnesium 2.2 mg/dL (1.6-2.3); Non-African American GFR(CKD) 53 (>60 ml/min/1.73 sqM); Potassium 4.5 mmol/L (3.5-5.1); Sodium 137 mmol/L (137-145); Total Bilirubin 0.7 mg/dL (0.2-1.3)
--- NOTE | 2024-11-06 19:01 | XR ---
EXAMINATION TYPE: XR chest 2V DATE OF EXAM: 11/06/2024 6:55 PM COMPARISON: 03/19/2024 CLINICAL INDICATION: Male, 84 years old with history of Chest Pain, TECHNIQUE: XR chest 2V view(s) obtained. FINDINGS: The heart size is normal. The pulmonary vasculature is normal. The lungs are clear. IMPRESSION: 1. No acute pulmonary process. [facility], , 11/06/2024 6:59 PM
[2024-11-06 19:10] LABS: NT-Pro-B-Type Natriuretic Pept 811 pg/mL
[2024-11-06 21:23] VITALS: PULSE 65; RESP 18
[2024-11-06 21:50] VITALS: BP 93/67; TEMP 97.9
== END 2024-11-06 22:00 | disposition left against medical advice (07) ==
LOC: EC 18:06
DX: R07.2 Precordial pain (principal); F17.200 Nicotine dependence, unspecified, uncomplicated; Z53.29 Procedure and treatment not carried out because of patient's decision for other reasons
CPT/HCPCS: 36415; 71046; 80053; 83690; 83735; 83880; 84484; 85025; 85610; 85730; 93005; 99285